=== PATIENT | female | born 1970 | race Two or more races ===

== ENCOUNTER 2020-05-31 09:41 | Outpatient (REF) | payer MEDICAID, SELFPAY ==
--- NOTE | 2020-05-31 | MM_ITS ---
EXAMINATION: MM SCREENING DIGITAL BREAST TOMOSYNTHESIS, BILATERAL CLINICAL INFORMATION: Screening. Asymptomatic. The lifetime risk of breast cancer based on the Tyrer-Cuzick Model is 9%. COMPARISON: Mammography: 05/26/2019, 05/15/2018, 05/08/2017 TECHNIQUE: Digital breast tomosynthesis is performed in both the craniocaudal and mediolateral oblique views along with computer-aided detection (CAD). Synthesized 2D images are generated from the tomosynthesis. FINDINGS: The breasts are almost entirely fatty (ACR BI-RADS breast composition Category a). There are no significant masses, abnormal calcifications, or other abnormalities. Background stromal densities are stable. No significant changes. IMPRESSION: No mammographic evidence of malignancy. ASSESSMENT: BI-RADS 1: Negative RECOMMENDATION: Routine annual mammography screening. This patient's information was entered into a reminder system with a target due date for their next mammogram.
== END 2020-05-31 09:42 | disposition home or self-care (01) ==
LOC: HO.MAMMO 09:41
PROVIDERS: Visit Provider Internal Medicine
DX: Z12.31 Encounter for screening mammogram for malignant neoplasm of breast (principal)
CPT/HCPCS: 77063; 77067; 78014

== ENCOUNTER 2020-07-04 09:22 | Outpatient (REF) | payer MEDICAID, SELFPAY ==
[2020-07-04 10:58] LABS: Alanine Aminotransferase 21 U/L (0-31); Alkaline Phosphatase 90 U/L (39-117); Anion Gap 12 (12-20); Aspartate Amino Transferase 28 U/L (5-31); Bilirubin Total 0.3 mg/dL (0.0-1.0); Blood Urea Nitrogen 15 mg/dL (9-16); Calcium 8.9 mg/dL (8.4-10.2); Carbon Dioxide 30 mmol/L (22-29); Chloride 101 mmol/L (96-108); Estimated Glomerular Filt Rate > 60; Glucose Random 98 mg/dL (60-115); Potassium 3.6 mmol/l (3.3-5.1); Sodium 139 mmol/L (135-145); Total Protein 7.1 g/dL (6.5-8.0)
[2020-07-04 11:00] LABS: Estimated Average Glucose 131 mg/dL; Hemoglobin A1c % 6.2 %
== END 2020-07-04 09:23 | disposition home or self-care (01) ==
LOC: HO.LAB 09:22
PROVIDERS: Visit Provider Internal Medicine
DX: E03.9 Hypothyroidism, unspecified (principal); E78.00 Pure hypercholesterolemia, unspecified; I10 Essential (primary) hypertension; Z00.00 Encounter for general adult medical examination without abnormal findings
CPT/HCPCS: 80053; 83036

== ENCOUNTER 2020-10-18 09:25 | Outpatient (REF) | payer MEDICAID, SELFPAY ==
[2020-10-18 11:02] LABS: Thyroid Stimulating Hormone 0.93 uIU/mL (0.32-4.0)
== END 2020-10-18 09:26 | disposition home or self-care (01) ==
LOC: HO.LAB 09:25
PROVIDERS: PCP Internal Medicine; Visit Provider Internal Medicine
DX: E03.9 Hypothyroidism, unspecified (principal); E11.9 Type 2 diabetes mellitus without complications; I10 Essential (primary) hypertension; F33.41 Major depressive disorder, recurrent, in partial remission
CPT/HCPCS: 36415; 84443

== ENCOUNTER 2021-01-17 12:00 | Outpatient (REF) | payer MEDICAID, SELFPAY ==
[2021-01-17 13:40] LABS: Estimated Average Glucose 131 mg/dL; Hemoglobin A1c % 6.2 %
[2021-01-17 13:46] LABS: Alanine Aminotransferase 21 U/L (0-31); Albumin Level 4.1 g/dL (3.5-5.0); Alkaline Phosphatase 97 U/L (39-117); Anion Gap 13 (12-20); Aspartate Amino Transferase 25 U/L (5-31); Bilirubin Total 0.3 mg/dL (0.0-1.0); Blood Urea Nitrogen 13 mg/dL (9-16); Calcium 9.3 mg/dL (8.4-10.2); Carbon Dioxide 30 mmol/L (22-29); Chloride 100 mmol/L (96-108); Estimated Glomerular Filt Rate > 60; Glucose Random 99 mg/dL (60-115); Potassium 4.2 mmol/L (3.3-5.1); Sodium 139 mmol/L (135-145); Total Protein 7.5 g/dL (6.5-8.0)
== END 2021-01-17 12:01 | disposition home or self-care (01) ==
LOC: HO.LAB 12:00
PROVIDERS: PCP Internal Medicine; Visit Provider Internal Medicine
DX: E03.9 Hypothyroidism, unspecified (principal); E11.9 Type 2 diabetes mellitus without complications; I10 Essential (primary) hypertension; M25.562 Pain in left knee
CPT/HCPCS: 36415; 80053; 83036

== ENCOUNTER 2021-04-25 09:24 | Outpatient (REF) | payer MEDICAID, SELFPAY ==
[2021-04-25 10:21] LABS: MANUAL DIFF FLAG NO
[2021-04-25 10:29] LABS: Basophils Percent Auto 0.4 % (0-2); Eosinophils Absolute Auto 0.1 X10*3/uL (0.0-0.4); Eosinophils Percent Auto 1.3 % (0-4); Hematocrit 31.8 % (37-47); Hemoglobin 9.3 g/dl (12.0-16.0); Imm Gran Abs Auto 0.03 X10*3/uL (0.00-0.03); Imm Gran Pct Auto 0.4 % (0.0-0.4); Lymphocytes Absolute Auto 1.2 X10*3/uL (1.2-4.9); Lymphocytes Percent Auto 15.2 % (20-40); Mean Corpuscular HGB Conc 29.2 g/dl (31.0-35.0); Mean Corpuscular Hemoglobin 21.4 pg (27.0-33.0); Mean Corpuscular Volume 73.1 fL (80-98); Mean Platelet Volume 9.7 fL (9.4-12.3); Monocytes Absolute Auto 0.7 X10*3/uL (0.1-1.2); Monocytes Percent Auto 8.8 % (2-11); Neutrophils Absolute Auto 5.7 X10*3/uL (2.0-8.3); Neutrophils Percent Auto 73.9 % (45-73); Platelet Count 470 X10*3/uL (160-400); Red Blood Count 4.35 X10*6/uL (4.20-5.50); White Blood Count 7.8 X10*3/uL (4.8-10.8)
[2021-04-25 11:39] LABS: Thyroid Stimulating Hormone 1.21 uIU/mL (0.32-4.0)
[2021-04-25 11:58] LABS: Alanine Aminotransferase 28 U/L (0-31); Albumin Level 4.1 g/dL (3.5-5.0); Alkaline Phosphatase 98 U/L (39-117); Anion Gap 13 (12-20); Aspartate Amino Transferase 32 U/L (5-31); Bilirubin Total 0.3 mg/dL (0.0-1.0); Blood Urea Nitrogen 10 mg/dL (9-16); Calcium 9.4 mg/dL (8.4-10.2); Carbon Dioxide 28 mmol/L (22-29); Chloride 101 mmol/L (96-108); Cholesterol 165 mg/dL; Estimated Glomerular Filt Rate > 60; Glucose Random 98 mg/dL (60-115); HDL Cholesterol 61 mg/dL; LDL Cholesterol Calculated 83 mg/dl; Potassium 3.8 mmol/L (3.3-5.1); Sodium 138 mmol/L (135-145); Total Protein 7.5 g/dL (6.5-8.0); Triglycerides 105 mg/dL
[2021-04-25 12:00] LABS: Creatinine Urine 157.09 mg/dL; Microalbum/Creatinine Ratio Ur 10.1 ug/mg cr
== END 2021-04-25 09:25 | disposition home or self-care (01) ==
LOC: HO.LAB 09:24
PROVIDERS: PCP Internal Medicine; Visit Provider Internal Medicine
DX: E03.9 Hypothyroidism, unspecified (principal); E11.9 Type 2 diabetes mellitus without complications; F33.42 Major depressive disorder, recurrent, in full remission; I10 Essential (primary) hypertension
CPT/HCPCS: 36415; 80053; 80061; 82043; 84443; 85025

== ENCOUNTER 2021-06-05 10:58 | Outpatient (REF) | payer MEDICAID, SELFPAY ==
--- NOTE | ~2021-06-05 | MM_ITS ---
EXAMINATION: MM SCREENING DIGITAL BREAST TOMOSYNTHESIS, BILATERAL CLINICAL INFORMATION: Screening. Asymptomatic. The lifetime risk of breast cancer based on the Tyrer-Cuzick Model is 12.0%. COMPARISON: Mammography: May 31, 2020 and studies dating back to February 21, 2012 TECHNIQUE: Digital breast tomosynthesis is performed in both the craniocaudal and mediolateral oblique views along with computer-aided detection (CAD). Synthesized 2D images are generated from the tomosynthesis. FINDINGS: The breasts are almost entirely fatty (ACR BI-RADS breast composition Category a). There are no significant masses, abnormal calcifications, or other abnormalities. MM/MM tomosynthesis screening BI IMPRESSION: There are no significant changes from prior study. ASSESSMENT: BI-RADS 1: Negative RECOMMENDATION: Routine annual mammography screening. This patient's information was entered into a reminder system with a target due date for their next mammogram.
== END 2021-06-05 10:59 | disposition home or self-care (01) ==
LOC: HO.MAMMO 10:58
PROVIDERS: Visit Provider Internal Medicine
DX: Z12.31 Encounter for screening mammogram for malignant neoplasm of breast (principal)
CPT/HCPCS: 77063; 77067

== ENCOUNTER 2021-09-03 09:57 | Outpatient (REF) | payer MEDICAID, SELFPAY ==
[2021-09-03 10:11] LABS: MANUAL DIFF FLAG NO
[2021-09-03 11:04] LABS: Basophils Percent Auto 0.4 % (0-2); Eosinophils Absolute Auto 0.1 X10*3/uL (0.0-0.4); Eosinophils Percent Auto 0.8 % (0-4); Hematocrit 31.6 % (37.0-47.0); Hemoglobin 9.2 g/dl (12.0-16.0); Imm Gran Abs Auto 0.02 X10*3/uL (0.00-0.03); Imm Gran Pct Auto 0.3 % (0.0-0.4); Lymphocytes Absolute Auto 0.8 X10*3/uL (1.2-4.9); Lymphocytes Percent Auto 11.7 % (20-40); Mean Corpuscular HGB Conc 29.1 g/dl (31.0-35.0); Mean Corpuscular Hemoglobin 20.6 pg (27.0-33.0); Mean Corpuscular Volume 70.9 fL (80.0-98.0); Mean Platelet Volume 10.1 fL (9.4-12.3); Monocytes Absolute Auto 0.6 X10*3/uL (0.1-1.2); Monocytes Percent Auto 8.4 % (2-11); Neutrophils Absolute Auto 5.6 x10*3/uL (2.0-8.3); Neutrophils Percent Auto 78.4 % (45-73); Platelet Count 438 X10*3/uL (160-400); Red Blood Count 4.46 X10*6/uL (4.20-5.50); Red Cell Distribution Width 18.1 % (11.0-16.0); White Blood Count 7.2 X10*3/uL (4.8-10.8)
[2021-09-03 11:17] LABS: Estimated Average Glucose 126 mg/dL
[2021-09-03 11:36] LABS: Alanine Aminotransferase 23 U/L (0-31); Albumin Level 3.9 g/dL (3.5-5.0); Alkaline Phosphatase 92 U/L (39-117); Anion Gap 10 (12-20); Aspartate Amino Transferase 28 U/L (5-31); Bilirubin Total 0.3 mg/dL (0.0-1.0); Blood Urea Nitrogen 10 mg/dL (9-16); Calcium 9.2 mg/dL (8.4-10.2); Carbon Dioxide 31 mmol/L (22-29); Chloride 103 mmol/L (96-108); Estimated Glomerular Filt Rate > 60; Glucose Random 96 mg/dL (60-115); Potassium 3.8 mmol/L (3.3-5.1); Sodium 140 mmol/L (135-145); Total Protein 7.1 g/dL (6.5-8.0)
[2021-09-03 11:50] LABS: Vitamin B12 297 pg/mL (200-900)
[2021-09-03 11:57] LABS: Ferritin 4 ng/mL (10-250)
== END 2021-09-03 09:58 | disposition home or self-care (01) ==
LOC: HO.LAB 09:57
PROVIDERS: Visit Provider Internal Medicine
DX: Z00.01 Encounter for general adult medical examination with abnormal findings (principal); D50.8 Other iron deficiency anemias; E03.9 Hypothyroidism, unspecified; E11.9 Type 2 diabetes mellitus without complications; F33.41 Major depressive disorder, recurrent, in partial remission
CPT/HCPCS: 36415; 80053; 82607; 82728; 83036; 85025

== ENCOUNTER 2021-12-24 10:08 | Outpatient (REF) | payer MEDICAID, SELFPAY ==
[2021-12-24 10:21] LABS: MANUAL DIFF FLAG NO
[2021-12-24 10:53] LABS: Basophils Percent Auto 0.3 % (0-2); Eosinophils Absolute Auto 0.1 X10*3/uL (0.0-0.4); Eosinophils Percent Auto 0.8 % (0-4); Hemoglobin 11.6 g/dl (12.0-16.0); Imm Gran Abs Auto 0.02 X10*3/uL (0.00-0.03); Imm Gran Pct Auto 0.3 % (0.0-0.4); Lymphocytes Absolute Auto 1.1 X10*3/uL (1.2-4.9); Lymphocytes Percent Auto 16.7 % (20-40); Mean Corpuscular HGB Conc 30.5 g/dl (31.0-35.0); Mean Corpuscular Hemoglobin 24.4 pg (27.0-33.0); Mean Platelet Volume 10.2 fL (9.4-12.3); Monocytes Absolute Auto 0.5 X10*3/uL (0.1-1.2); Monocytes Percent Auto 8.3 % (2-11); Neutrophils Absolute Auto 4.7 x10*3/uL (2.0-8.3); Neutrophils Percent Auto 73.6 % (45-73); Platelet Count 348 X10*3/uL (160-400); Red Blood Count 4.75 X10*6/uL (4.20-5.50); Red Cell Distribution Width 19.4 % (11.0-16.0); White Blood Count 6.4 X10*3/uL (4.8-10.8)
[2021-12-24 10:57] LABS: Estimated Average Glucose 120 mg/dL; Hemoglobin A1c % 5.8 %
[2021-12-24 11:22] LABS: Alanine Aminotransferase 24 U/L (0-31); Albumin Level 4.1 g/dL (3.5-5.0); Alkaline Phosphatase 92 U/L (39-117); Anion Gap 14 (12-20); Aspartate Amino Transferase 29 U/L (5-31); Bilirubin Total 0.3 mg/dL (0.0-1.0); Blood Urea Nitrogen 11 mg/dL (9-16); Calcium 9.6 mg/dL (8.4-10.2); Carbon Dioxide 28 mmol/L (22-29); Chloride 102 mmol/L (96-108); Estimated Glomerular Filt Rate > 60; Glucose Random 102 mg/dL (60-115); Potassium 3.7 mmol/L (3.3-5.1); Sodium 140 mmol/L (135-145); Total Protein 7.5 g/dL (6.5-8.0)
[2021-12-24 11:31] LABS: Ferritin 13 ng/mL (10-250); Thyroid Stimulating Hormone 0.54 uIU/mL (0.32-4.0)
== END 2021-12-24 10:09 | disposition home or self-care (01) ==
LOC: HO.LAB 10:08
PROVIDERS: PCP Internal Medicine; Visit Provider Internal Medicine
DX: D50.8 Other iron deficiency anemias (principal); E03.9 Hypothyroidism, unspecified; E11.9 Type 2 diabetes mellitus without complications; F33.41 Major depressive disorder, recurrent, in partial remission
CPT/HCPCS: 36415; 80053; 82728; 83036; 84443; 85025

== ENCOUNTER 2022-05-01 10:04 | Outpatient (REF) | payer MEDICAID, SELFPAY ==
[2022-05-01 12:10] LABS: Estimated Average Glucose 117 mg/dL; Hemoglobin A1c % 5.7 %
[2022-05-01 12:32] LABS: Alanine Aminotransferase 23 U/L (0-31); Albumin Level 4.1 g/dL (3.5-5.0); Alkaline Phosphatase 93 U/L (39-117); Anion Gap 16 (12-20); Aspartate Amino Transferase 27 U/L (5-31); Bilirubin Total 0.2 mg/dL (0.0-1.0); Blood Urea Nitrogen 14 mg/dL (9-16); Calcium 9.1 mg/dL (8.4-10.2); Carbon Dioxide 27 mmol/L (22-29); Chloride 102 mmol/L (96-108); Cholesterol 163 mg/dL; Estimated Glomerular Filt Rate > 60; Glucose Random 94 mg/dL (60-115); HDL Cholesterol 65 mg/dL; LDL Cholesterol Calculated 83 mg/dl; Potassium 4.3 mmol/L (3.3-5.1); Sodium 141 mmol/L (135-145); Total Protein 7.2 g/dL (6.5-8.0); Triglycerides 78 mg/dL
[2022-05-01 12:55] LABS: Thyroid Stimulating Hormone 0.62 uIU/mL (0.32-4.0)
== END 2022-05-01 10:05 | disposition home or self-care (01) ==
LOC: HO.LAB 10:04
PROVIDERS: PCP Internal Medicine; Visit Provider Internal Medicine
DX: D50.8 Other iron deficiency anemias (principal); E03.9 Hypothyroidism, unspecified; E11.9 Type 2 diabetes mellitus without complications; F33.41 Major depressive disorder, recurrent, in partial remission
CPT/HCPCS: 36415; 80053; 80061; 83036; 84443

== ENCOUNTER 2022-05-03 10:08 | Outpatient (REF) | payer MEDICAID, SELFPAY ==
[2022-05-03 11:30] LABS: Microalbumin Urine < 5.0 mg/L
== END 2022-05-03 10:09 | disposition home or self-care (01) ==
LOC: HO.LNP 10:08
PROVIDERS: Visit Provider Internal Medicine
DX: E11.9 Type 2 diabetes mellitus without complications (principal)
CPT/HCPCS: 82043

== ENCOUNTER 2022-06-12 08:18 | Outpatient (REF) | payer MEDICAID, SELFPAY ==
--- NOTE | ~2022-06-12 | MM_ITS ---
EXAMINATION: MM SCREENING DIGITAL BREAST TOMOSYNTHESIS, BILATERAL CLINICAL INFORMATION: Screening. Asymptomatic. The lifetime risk of breast cancer based on the Tyrer-Cuzick Model is 10%. COMPARISON: Mammography: June 05, 2021 and studies dating back to May 06, 2016 TECHNIQUE: Digital breast tomosynthesis is performed in both the craniocaudal and mediolateral oblique views along with computer-aided detection (CAD). Synthesized 2D images are generated from the tomosynthesis. FINDINGS: The breasts are almost entirely fatty (ACR BI-RADS breast composition Category a). There are no significant masses, abnormal calcifications, or other abnormalities. Skin calcifications versus deodorant is seen within the left axilla MM/MM tomosynthesis screening BI IMPRESSION: No mammographic evidence of malignancy. ASSESSMENT: BI-RADS 1: Negative RECOMMENDATION: Routine annual mammography screening. This patient's information was entered into a reminder system with a target due date for their next mammogram.
== END 2022-06-12 08:19 | disposition home or self-care (01) ==
LOC: HO.MAMMO 08:18
PROVIDERS: PCP Internal Medicine; Visit Provider Internal Medicine
DX: Z12.31 Encounter for screening mammogram for malignant neoplasm of breast (principal)
CPT/HCPCS: 77063; 77067

== ENCOUNTER 2022-08-29 09:56 | Outpatient (REF) | payer MEDICAID, SELFPAY ==
[2022-08-29 10:11] LABS: MANUAL DIFF FLAG NO
[2022-08-29 10:30] LABS: Basophils Percent Auto 0.2 % (0-2); Eosinophils Percent Auto 0.8 % (0-4); Hematocrit 37.4 % (37.0-47.0); Hemoglobin 11.9 g/dl (12.0-16.0); Imm Gran Abs Auto 0.03 X10*3/uL (0.00-0.03); Imm Gran Pct Auto 0.6 % (0.0-0.4); Lymphocytes Absolute Auto 0.8 X10*3/uL (1.2-4.9); Lymphocytes Percent Auto 15.3 % (20-40); Mean Corpuscular HGB Conc 31.8 g/dl (31.0-35.0); Mean Corpuscular Hemoglobin 27.5 pg (27.0-33.0); Mean Corpuscular Volume 86.4 fL (80.0-98.0); Monocytes Absolute Auto 0.5 X10*3/uL (0.1-1.2); Monocytes Percent Auto 10.1 % (2-11); Neutrophils Absolute Auto 3.8 x10*3/uL (2.0-8.3); Platelet Count 309 X10*3/uL (160-400); Red Blood Count 4.33 X10*6/uL (4.20-5.50); Red Cell Distribution Width 14.2 % (11.0-16.0); White Blood Count 5.2 X10*3/uL (4.8-10.8)
== END 2022-08-29 09:57 | disposition home or self-care (01) ==
LOC: HO.LAB 09:56
PROVIDERS: PCP Internal Medicine; Visit Provider Internal Medicine
DX: Z00.00 Encounter for general adult medical examination without abnormal findings (principal); E11.9 Type 2 diabetes mellitus without complications; E78.00 Pure hypercholesterolemia, unspecified; E03.8 Other specified hypothyroidism
CPT/HCPCS: 36415; 85025

== ENCOUNTER 2022-11-25 08:55 | Outpatient (REF) | payer MEDICAID, SELFPAY ==
[2022-11-25 09:07] LABS: MANUAL DIFF FLAG NO
[2022-11-25 09:58] LABS: Basophils Percent Auto 0.5 % (0-2); Eosinophils Absolute Auto 0.1 X10*3/uL (0.0-0.4); Eosinophils Percent Auto 0.8 % (0-4); Hematocrit 36.6 % (37.0-47.0); Hemoglobin 11.6 g/dl (12.0-16.0); Imm Gran Abs Auto 0.02 X10*3/uL (0.00-0.03); Imm Gran Pct Auto 0.3 % (0.0-0.4); Lymphocytes Absolute Auto 1.4 X10*3/uL (1.2-4.9); Lymphocytes Percent Auto 18.8 % (20-40); Mean Corpuscular HGB Conc 31.7 g/dl (31.0-35.0); Mean Corpuscular Hemoglobin 27.8 pg (27.0-33.0); Mean Corpuscular Volume 87.6 fL (80.0-98.0); Monocytes Absolute Auto 0.7 X10*3/uL (0.1-1.2); Monocytes Percent Auto 8.7 % (2-11); Neutrophils Absolute Auto 5.3 x10*3/uL (2.0-8.3); Neutrophils Percent Auto 70.9 % (45-73); Platelet Count 400 X10*3/uL (160-400); Red Blood Count 4.18 X10*6/uL (4.20-5.50); Red Cell Distribution Width 13.9 % (11.0-16.0); White Blood Count 7.4 X10*3/uL (4.8-10.8)
[2022-11-25 10:08] LABS: Estimated Average Glucose 120 mg/dL; Hemoglobin A1c % 5.8 %
[2022-11-25 10:33] LABS: Alanine Aminotransferase 20 U/L (0-31); Alkaline Phosphatase 76 U/L (39-117); Anion Gap 14 (12-20); Aspartate Amino Transferase 25 U/L (5-31); Bilirubin Total 0.3 mg/dL (0.0-1.0); Blood Urea Nitrogen 20 mg/dL (9-16); Carbon Dioxide 29 mmol/L (22-29); Chloride 101 mmol/L (96-108); Estimated Glomerular Filt Rate > 60; Glucose Random 90 mg/dL (60-115); Potassium 4.5 mmol/L (3.3-5.1); Sodium 139 mmol/L (135-145); Total Protein 6.9 g/dL (6.5-8.0)
[2022-11-25 10:51] LABS: Thyroid Stimulating Hormone 0.46 uIU/mL (0.32-4.0)
== END 2022-11-25 08:56 | disposition home or self-care (01) ==
LOC: HO.LAB 08:55
PROVIDERS: PCP Internal Medicine; Visit Provider Internal Medicine
DX: D64.9 Anemia, unspecified (principal); E03.8 Other specified hypothyroidism; E11.9 Type 2 diabetes mellitus without complications; F32.4 Major depressive disorder, single episode, in partial remission
CPT/HCPCS: 36415; 80053; 83036; 84443; 85025

== ENCOUNTER 2023-04-21 09:57 | Outpatient (REF) | payer MEDICAID, SELFPAY ==
[2023-04-21 10:17] LABS: MANUAL DIFF FLAG NO
[2023-04-21 10:40] LABS: Basophils Percent Auto 0.3 % (0-2); Eosinophils Absolute Auto 0.1 X10*3/uL (0.0-0.4); Eosinophils Percent Auto 0.8 % (0-4); Hematocrit 33.9 % (37.0-47.0); Imm Gran Abs Auto 0.02 X10*3/uL (0.00-0.03); Imm Gran Pct Auto 0.3 % (0.0-0.4); Lymphocytes Absolute Auto 0.9 X10*3/uL (1.2-4.9); Lymphocytes Percent Auto 13.7 % (20-40); Mean Corpuscular HGB Conc 32.4 g/dl (31.0-35.0); Mean Corpuscular Hemoglobin 27.6 pg (27.0-33.0); Mean Corpuscular Volume 85.2 fL (80.0-98.0); Monocytes Absolute Auto 0.5 X10*3/uL (0.1-1.2); Monocytes Percent Auto 7.5 % (2-11); Neutrophils Percent Auto 77.4 % (45-73); Platelet Count 337 X10*3/uL (160-400); Red Blood Count 3.98 X10*6/uL (4.20-5.50); Red Cell Distribution Width 13.5 % (11.0-16.0); White Blood Count 6.4 X10*3/uL (4.8-10.8)
[2023-04-21 11:28] LABS: Estimated Average Glucose 120 mg/dL; Hemoglobin A1c % 5.8 % (<6.0)
[2023-04-21 12:11] LABS: Creatinine Urine 162.29 mg/dL; Microalbum/Creatinine Ratio Ur 6.7 ug/mg cr (<30)
[2023-04-21 12:28] LABS: Alanine Aminotransferase 17 U/L (0-31); Albumin Level 3.9 g/dL (3.5-5.0); Alkaline Phosphatase 75 U/L (39-117); Anion Gap 13 (12-20); Aspartate Amino Transferase 22 U/L (5-31); Bilirubin Total 0.2 mg/dL (0.0-1.0); Blood Urea Nitrogen 17 mg/dL (9-16); Calcium 9.3 mg/dL (8.4-10.2); Carbon Dioxide 27 mmol/L (22-29); Chloride 105 mmol/L (96-108); Cholesterol 155 mg/dL (<200); Estimated Glomerular Filt Rate > 60; Glucose Random 94 mg/dL (60-115); HDL Cholesterol 63 mg/dL (>40); LDL Cholesterol Calculated 76 mg/dL (<100); Potassium 3.8 mmol/L (3.3-5.1); Sodium 141 mmol/L (135-145); Total Protein 7.1 g/dL (6.5-8.0); Triglycerides 82 mg/dL (<150)
[2023-04-21 12:33] LABS: Thyroid Stimulating Hormone 0.27 uIU/mL (0.32-4.0)
== END 2023-04-21 09:58 | disposition home or self-care (01) ==
LOC: HO.LAB 09:57
PROVIDERS: PCP Internal Medicine; Visit Provider Internal Medicine
DX: E03.8 Other specified hypothyroidism (principal); E11.9 Type 2 diabetes mellitus without complications; I10 Essential (primary) hypertension
CPT/HCPCS: 36415; 80053; 80061; 82043; 83036; 84443; 85025

== ENCOUNTER 2023-06-18 10:02 | Outpatient (REF) | payer MEDICAID, SELFPAY | END 2023-06-18 10:03 | disposition home or self-care (01) | LOC: HO.MAMMO 10:02 | PROVIDERS: PCP Internal Medicine; Visit Provider Internal Medicine | DX: Z12.31 Encounter for screening mammogram for malignant neoplasm of breast (principal) | CPT/HCPCS: 77063; 77067 ==

== ENCOUNTER → 2023-06-18 10:30 | Outpatient (BNV) | payer MEDICAID, SELFPAY | PROVIDERS: PCP Internal Medicine; Visit Provider Radiology Diagnostic Radiology | DX: Z12.31 Encounter for screening mammogram for malignant neoplasm of breast (principal) | CPT/HCPCS: 77063; 77067 ==

== ENCOUNTER 2023-07-29 14:17 | Outpatient (AMB) | payer MEDICAID, SELFPAY ==
--- NOTE | 2023-07-29 14:29 | A.OFFVIS_ITS ---
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 Intake Note: NPV Comb Tender Required: No Accompanied by: Self / Same As Patient Allergies No Known Allergies Allergy (Verified 07/29/23 14:36) Medication List - Last Reconciled 07/29/23 by Akhil Thurman MD aspirin (Adult Low Dose Aspirin) 81 mg PO DAILY atorvastatin 20 mg PO DAILY calcium carbonate-vitamin D3 600 mg-10 mcg (400 unit) 1 tab PO BID levothyroxine 88 mcg PO DAILY metformin 850 mg PO BID metoprolol succinate ER 25 mg PO DAILY sacubitril-valsartan 24-26 mg (Entresto) 1 tab PO BID sertraline 100 mg PO DAILY ticagrelor (Brilinta) 90 mg PO BID HPI HPI Comments History of Present Illness Details My is here for consultation regarding coronary artery disease. Records from [facility] reviewed. Patient with many comorbidities including hypertension, dyslipidemia, diabetes, obesity presented to [facility] in June of this year with chest pain. Diagnosed to have STEMI and underwent drug- eluting stent to the LAD. She also had severe LV dysfunction with an ejection fraction of 25-30% range. She has been put on appropriate medications and then discharged home. She states she is doing okay for the most part. Occasional chest pains but nothing bothersome. Not clear there even cardiac as they are nonexertional. Otherwise, blood pressure seems to be on the higher side today but at home apparently it is generally better. [facility] Medical History (Updated 07/29/23 @ 14:58 by Akhil Thurman MD) Essential hypertension Type 2 diabetes mellitus with unspecified complications Ischemic cardiomyopathy Atherosclerotic cardiovascular disease Surgical History (Updated 07/29/23 @ 14:47 by Akhil Thurman MD) Hx of cardiac catheterization Family History (Updated 07/29/23 @ 14:39 by Paige Little) Mother Stroke Social History (Updated 07/29/23 @ 14:39 by Paige Little) Alcohol intake: never Patient Tobacco Use Status: Never used Tobacco Review of Systems Const Denies chills, Denies daytime sleepiness, Denies fatigue, Denies fever(s), Denies frequent falls, Denies night sweats, Denies snoring, Denies weakness, Denies weight gain and Denies weight loss Eyes Denies loss of vision ENT Denies dizziness and Denies hearing loss Card Denies chest pain, Denies chest pain with activity, Denies syncope, Denies rapid heart rate, Denies edema, Denies claudication, Denies leg edema, Denies lightheadedness, Denies palpitations, Denies dyspnea, Denies dyspnea on exertion and Denies orthopnea Resp Denies cough, Denies excessive phlegm production, Denies dyspnea, Denies dyspnea on exertion, Denies snoring and Denies wheezing GI Denies abdominal pain, Denies hematochezia, Denies change in bowel habits, Denies change in stool character, Denies heartburn, Denies nausea and Denies vomiting Denies hematuria, Denies urinary frequency and Denies dysuria Musc Denies arthralgias, Denies muscle weakness, Denies numbness and Denies tingling Skin/Breast Denies nail changes and Denies rash Neuro Denies Abnormal speech present, Denies dizziness, Denies syncope, Denies frequent falls, Denies loss of vision, Denies memory loss, Denies numbness, Denies tingling and Denies weakness Psych Denies depression and Denies memory loss Endo Denies fatigue and Denies palpitations Aller/Immun Denies wheezing Physical Exam Vital Signs: Last Vital Signs Pulse 71 07/29/23 14:36 BP 150/82 H 07/29/23 14:36 BMI result Body Mass Index 27.0 Const General: comfortable and no acute distress Orientation/consciousness: patient oriented x3 HEENT Other: Unremarkable Head: Yes normal to inspection Neck Neck: Yes normal visual inspection Chest Chest palpation & inspection: normal inspection of the chest Resp Auscultation: clear to auscultation bilaterally Cardio Palpation: normal PMI Heart sounds: S1 normal heart sound present, S2 normal heart sound present, no gallops, no murmurs and no rubs GI Palpation (GI): Soft to palpation Back/Spine/Pelvis Other: unremarkable Skin General skin exam: no rashes or lesions noted Neuro General: patient oriented x3 Speech: No Abnormal speech present Extrem General: Yes normal to inspection Psych Mental Status: mental status grossly normal Assessment & Plan Assessment & Plan (1) Atherosclerotic cardiovascular disease: Code(s): I25.10 - Atherosclerotic heart disease of [place] coronary artery without angina pectoris (2) Ischemic cardiomyopathy: Code(s): I25.5 - Ischemic cardiomyopathy (3) Stented coronary artery: Code(s): Z95.5 - Presence of coronary angioplasty implant and graft (4) Type 2 diabetes mellitus with unspecified complications: Code(s): E11.8 - Type 2 diabetes mellitus with unspecified complications (5) Essential hypertension: Code(s): I10 - Essential (primary) hypertension Plan EKG from [facility] shows sinus rhythm, anterior ischemia findings but no clear Q- waves. Echocardiogram with LVEF of 25-30%. Mid to distal anteroseptal wall, inferoseptal wall, apex, anterior anterior wall akinetic. In the cardiac catheterization, severe lesion to the proximal to mid LAD requiring ENEDELIA. Moderate disease in the left circumflex, om/PDA/PLV but not intervene. LVEDP was 6. Overall, continue medical therapy for coronary disease and cardiomyopathy. Long-term aspirin. Brilinta for 1 year. Continue Coreg/Entresto. Advised patient to bring it diary with her home blood pressure readings and we can start titrating the meds. Otherwise, repeat echocardiogram to reassess LVEF and ensured actually recovered and not. Will also referred for cardiac rehab. She is agreeable. With regard to diabetes, she is on metformin. Hemoglobin A1c is 5.8%. For dyslipidemia, on atorvastatin. Dose listed as 20 mg, but [facility] discharge states 80 mg. Not clear which is the correct dose. Follow-up in 6-8 weeks. Orders: Orders CA echo transthoracic complete Today I25.5 - Ischemic cardiomyopathy Cardiac Rehab Today Z95.5 - Presence of coronary angioplasty implant and graft Coding Level of Care Code New Pt Level 4 (33233) Diagnoses Atherosclerotic cardiovascular disease I25.10 Ischemic cardiomyopathy I25.5 Stented coronary artery Z95.5 Type 2 diabetes mellitus with unspecified complications E11.8 Essential hypertension I10
[2023-07-29 14:36] VITALS: BP 150/82; PULSE 71; BMI 27.0
== END 2023-07-29 14:52 | disposition home or self-care (01) ==
PROVIDERS: PCP Internal Medicine; Visit Provider Internal Medicine
DX: I25.10 Atherosclerotic heart disease of native coronary artery without angina pectoris (principal); I25.5 Ischemic cardiomyopathy; Z95.5 Presence of coronary angioplasty implant and graft; E11.8 Type 2 diabetes mellitus with unspecified complications; I10 Essential (primary) hypertension
CPT/HCPCS: 99204

== ENCOUNTER → 2023-07-29 14:17 | Outpatient (BNVA) | payer MEDICAID, SELFPAY | PROVIDERS: PCP Internal Medicine; Visit Provider Internal Medicine | DX: I25.10 Atherosclerotic heart disease of native coronary artery without angina pectoris (principal); I25.5 Ischemic cardiomyopathy; E11.8 Type 2 diabetes mellitus with unspecified complications; I10 Essential (primary) hypertension; Z95.5 Presence of coronary angioplasty implant and graft | CPT/HCPCS: 99202 ==

== ENCOUNTER → 2023-08-20 07:57 | Outpatient (REF) | payer MEDICAID, SELFPAY ==
--- NOTE | 2023-08-20 08:00 | CA_ITS ---
Transthoracic Echocardiogram Patient (Last, First, Middle): My Colin, Gender: Female Date of : 1970 Age: 53 Procedure Date: 08/20/2023 Procedure Type: Transthoracic Echocardiogram Location: OP Height: 167.64 cm Weight: 74.39 kg BSA: 1.84 m2 Heart Rate: bpm BP: 140 / 70 mmHg Floor Coverings Salesperson: KESHAWN/CHRISTIAN Referring MD: Akhil Thurman MD Symptoms: I25.5 - Ischemic cardiomyopathy Study Quality: Adequate ECG Rhythm: Sinus Conclusions: - The left ventricular systolic function is normal. The calculated ejection fraction is 55% by biplane method. - The apical inferior, mid inferior, and mid anteroseptal segments are hypokinetic. The mid inferoseptal segment is akinetic. - No obvious valvular pathology seen on this study. Findings Left Ventricle Normal left ventricular cavity size. There is normal left ventricular wall thickness. The left ventricular systolic function is normal. The calculated ejection fraction is 55% by biplane method. There is evidence of regional wall motion abnormalities. Diastolic function is normal for age. LV peak GLS -19.8%. Wall Motion Rest Echo Findings The apical inferior, mid inferior, and mid anteroseptal segments are hypokinetic. The mid inferoseptal segment is akinetic. Right Ventricle Normal right ventricular cavity size. There is mildly decreased right ventricular systolic function. Atria Both atria are normal in size. Aortic Valve There is a normal trileaflet aortic valve. There is no aortic valve stenosis. There is no aortic valve regurgitation. Mitral Valve The mitral valve appears normal. There is no mitral valve regurgitation. There is no mitral valve stenosis. Pulmonic Valve The pulmonic valve is likely normal. Tricuspid Valve There is trace tricuspid valve regurgitation. There is no evidence of pulmonary hypertension. Great Vessels The aortic arch is normal in size. Venous The inferior vena cava is normal in size and collapses greater than 50% with inspiration. Pericardium/Pleural There is no evidence of pericardial effusion. Prior Study Comparison No prior study available for comparison. Compared to recent [facility] [place], improved LVEF. Recommendations, Care & Conclusions No obvious valvular pathology seen on this study. Measurements 2D Linear Measurements IVSd: 0.84 0.6-0.9/0.6-1.0 cm LVIDd: 3.57 3.9-5.3/4.2-5.9 cm LVIDd Index: 1.94 2.4-3.2/2.2-3.1 cm/m2 LVIDs: 2.02 2.0-3.6 cm LVPWd: 1.08 0.7-1.1 cm LA Diam: 3.80 2.7-3.8/3.0-4.0 cm LAIDs Index: 2.07 1.5-2.3 cm/m2 LV Mass: 124.39 67-162/88-224 g LV Mass Index: 67.60 43-95/49-115 g/m2 LVOT Diam: 2.00 3.0+(-)1.3 cm 2D Systolic Function EF 4C: 54.70 >55% EF 2C: 58.40 >55% EF BiP: 55.20 >55% Mitral Valve MV Pk E: 0.79 MV PK A: 0.76 MV Decel Time: 176.00 E/A: 1.00 E'Lateral: 9.25 E'Medial: 6.96 E/E' Med: 11.30 E/E' Lat: 8.50 PHT: 52.00 MVA PHT: 4.23 Decel Christian: 4.47 Aortic Valve AoV Pk Arsen: 1.21 AoV Mn Arsen: 0.89 AoV VTI: 0.28 AoV Pk Grad: 6.00 Aov Mn Grad: 3.00 REKHA Cont.VTI: 2.22 LVOT LVOT Pk Arsen: 0.86 LVOT Mn Arsen: 0.65 LVOT VTI: 0.20 LVOT Pk Grad: 3.00 LVOT Mn Grad: 2.00 LVOT Diam: 2.00 LVOT Area: 3.14 Diastolic Function MV Pk E: 0.79 MV Pk A: 0.76 E/A: 1.00 E'Medial: 6.96 E/E' Med: 11.30 E' Laterial: 9.25 E/E' Lat: 8.50 Right Ventricle TAPSE (mm): 18.20 TVS' Arsen: 9.90 Tricuspid Valve TR Pk Arsen: 2.12 TR Pk Grad: 18.00 RA Press: 3.00 RVSP: 21.00 Great Vessels Aorta Sinus of Valsalva: 2.90 2.0-3.5 cm Ao Asc: 3.00 2.1-3.4 cm Ao Arch: 2.80 Updated in Other Vendor System with Status of Final Akhil Thurman MD electronically signed on 08/21/2023 4:34:00 PM with status of Final
== END ==
LOC: HO.CARD 07:57
PROVIDERS: PCP Internal Medicine; Visit Provider Internal Medicine
DX: I25.5 Ischemic cardiomyopathy (principal)
CPT/HCPCS: 93306; 93356

== ENCOUNTER → 2023-08-20 08:00 | Outpatient (BNV) | payer MEDICAID, SELFPAY | PROVIDERS: PCP Internal Medicine; Visit Provider Internal Medicine | DX: I25.5 Ischemic cardiomyopathy (principal) | CPT/HCPCS: 93306 ==

== ENCOUNTER 2023-10-09 08:54 | Outpatient (REF) | payer MEDICAID, SELFPAY ==
[2023-10-09 09:10] LABS: MANUAL DIFF FLAG NO
[2023-10-09 09:37] LABS: Basophils Percent Auto 0.3 % (0-2); Eosinophils Absolute Auto 0.1 X10*3/uL (0.0-0.4); Hematocrit 32.1 % (37.0-47.0); Hemoglobin 9.9 g/dl (12.0-16.0); Imm Gran Abs Auto 0.03 X10*3/uL (0.00-0.03); Imm Gran Pct Auto 0.5 % (0.0-0.4); Lymphocytes Absolute Auto 0.9 X10*3/uL (1.2-4.9); Lymphocytes Percent Auto 13.8 % (20-40); Mean Corpuscular HGB Conc 30.8 g/dl (31.0-35.0); Mean Corpuscular Hemoglobin 25.3 pg (27.0-33.0); Mean Corpuscular Volume 82.1 fL (80.0-98.0); Mean Platelet Volume 10.2 fL (9.4-12.3); Monocytes Absolute Auto 0.5 X10*3/uL (0.1-1.2); Monocytes Percent Auto 8.4 % (2-11); Neutrophils Absolute Auto 4.7 x10*3/uL (2.0-8.3); Platelet Count 422 X10*3/uL (160-400); Red Blood Count 3.91 X10*6/uL (4.20-5.50); Red Cell Distribution Width 15.1 % (11.0-16.0); White Blood Count 6.2 X10*3/uL (4.8-10.8)
[2023-10-09 09:41] LABS: Estimated Average Glucose 114 mg/dL; Hemoglobin A1c % 5.6 % (<6.0)
[2023-10-09 10:21] LABS: Alanine Aminotransferase 13 U/L (0-31); Albumin Level 3.8 g/dL (3.5-5.0); Alkaline Phosphatase 70 U/L (39-117); Anion Gap 12 (12-20); Aspartate Amino Transferase 24 U/L (5-31); Bilirubin Total 0.2 mg/dL (0.0-1.0); Blood Urea Nitrogen 13 mg/dL (9-16); Calcium 8.9 mg/dL (8.4-10.2); Carbon Dioxide 26 mmol/L (22-29); Chloride 106 mmol/L (96-108); Cholesterol 157 mg/dL (<200); Estimated Glomerular Filt Rate > 60; Glucose Random 89 mg/dL (60-115); HDL Cholesterol 68 mg/dL (>40); LDL Cholesterol Calculated 75 mg/dL (<100); Potassium 3.7 mmol/L (3.3-5.1); Sodium 140 mmol/L (135-145); Total Protein 6.9 g/dL (6.5-8.0); Triglycerides 72 mg/dL (<150)
[2023-10-09 10:34] LABS: Ferritin 13 ng/mL (10-250)
== END 2023-10-09 08:55 | disposition home or self-care (01) ==
LOC: HO.LAB 08:54
PROVIDERS: Visit Provider Internal Medicine
DX: D64.9 Anemia, unspecified (principal); E11.9 Type 2 diabetes mellitus without complications; I21.29 ST elevation (STEMI) myocardial infarction involving other sites; Z95.810 Presence of automatic (implantable) cardiac defibrillator
CPT/HCPCS: 36415; 80053; 80061; 82728; 83036; 85025

== ENCOUNTER 2023-10-14 08:56 | Outpatient (AMB) | payer MEDICAID, SELFPAY ==
[2023-10-14 09:07] VITALS: BP 114/74; PULSE 84; BMI 26.8
--- NOTE | 2023-10-14 09:07 | A.OFFVIS_ITS ---
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 Accompanied by: Self / Same As Patient Allergies No Known Allergies Allergy (Verified 10/14/23 09:09) Medication List - Last Reconciled 10/14/23 by Akhil Thurman MD aspirin (Adult Low Dose Aspirin) 81 mg PO DAILY atorvastatin 80 mg PO BEDTIME calcium carbonate-vitamin D3 600 mg-10 mcg (400 unit) 1 tab PO BID levothyroxine 88 mcg PO DAILY metformin 850 mg PO BID metoprolol succinate ER 25 mg PO DAILY sacubitril-valsartan 24-26 mg (Entresto) 1 tab PO BID 30 days sertraline 100 mg PO DAILY ticagrelor (Brilinta) 90 mg PO BID 90 days HPI HPI Comments History of Present Illness Details My returns for follow-up regarding coronary artery disease. Multiple comorbidities including diabetes, hypertension, dyslipidemia. She presented to [facility] in June 2023 with chest pain and diagnosed to have STEMI; underwent ENEDELIA to LAD. She also had severe LV dysfunction with an ejec tion fraction of 25-30% range. She has been put on appropriate medications and then discharged home. She states she is doing fine. No new complaints. Nothing cardiac. No angina. [facility] Medical History (Updated 07/29/23 @ 14:58 by Akhil Thurman MD) Essential hypertension Type 2 diabetes mellitus with unspecified complications Ischemic cardiomyopathy Atherosclerotic cardiovascular disease Surgical History Hx of cardiac catheterization Family History Mother Stroke Social History Alcohol intake: never Patient Tobacco Use Status: Never used Tobacco Review of Systems Const Denies weakness ENT Denies dizziness Card Denies chest pain, Denies chest pain with activity, Denies syncope, Denies rapid heart rate, Denies pedal edema, Denies edema, Denies leg edema, Denies lightheadedness, Denies palpitations, Denies dyspnea, Denies dyspnea on exertion and Denies orthopnea Resp Denies cough, Denies dyspnea and Denies dyspnea on exertion GI Denies hematochezia and Denies change in stool character Musc Denies abnormal gait, Denies muscle cramps, Denies muscle weakness, Denies numbness, Denies radiating pain into limb and Denies tingling Neuro Denies abnormal gait, Denies dizziness, Denies syncope, Denies numbness, Denies tingling and Denies weakness Endo Denies palpitations Physical Exam Vital Signs: Last Vital Signs Pulse 84 10/14/23 09:07 BP 114/74 10/14/23 09:07 BMI result Body Mass Index 26.8 Const General: comfortable and no acute distress Orientation/consciousness: patient oriented x3 HEENT Other: Unremarkable Head: Yes normal to inspection Neck Neck: Yes normal visual inspection Chest Chest palpation & inspection: normal inspection of the chest Resp Auscultation: clear to auscultation bilaterally Cardio Palpation: normal PMI Heart sounds: S1 normal heart sound present, S2 normal heart sound present, no gallops, no murmurs and no rubs GI Palpation (GI): Soft to palpation Back/Spine/Pelvis Other: unremarkable Skin General skin exam: no rashes or lesions noted Neuro General: patient oriented x3 Extrem General: Yes normal to inspection Psych Mental Status: mental status grossly normal Assessment & Plan Assessment & Plan (1) Atherosclerotic cardiovascular disease: Code(s): I25.10 - Atherosclerotic heart disease of [place] coronary artery without angina pectoris (2) Stented coronary artery: Code(s): Z95.5 - Presence of coronary angioplasty implant and graft (3) Ischemic cardiomyopathy: Code(s): I25.5 - Ischemic cardiomyopathy (4) Type 2 diabetes mellitus with unspecified complications: Code(s): E11.8 - Type 2 diabetes mellitus with unspecified complications (5) Essential hypertension: Code(s): I10 - Essential (primary) hypertension Plan [place] [facility] [place] sinus rhythm, anterior ischemia findings but no clear Q- waves. Initial echocardiogram with LVEF of 25-30%. Mid to distal anteroseptal wall, inferoseptal wall, apex, anterior anterior wall akinetic. In the repeat study, LVEF 55%. In the cardiac catheterization, severe lesion to the proximal to mid LAD requiring ENEDELIA. Moderate disease in the left circumflex, OM/PDA/PLV, but not intervened. LVEDP was 6. Overall, continue medical therapy for coronary disease and cardiomyopathy. Long-term aspirin. Brilinta for 1 year. Continue metoprolol ER/Entresto. With regard to diabetes, she is on metformin. Hemoglobin A1c is 5.6%. For dyslipidemia, on atorvastatin. Last LDL 70 mg/dL and triglycerides 72 mg/dL. Continue cardiac rehabilitation. Coding Level of Care Code Est Pt Level 4 (71986) Diagnoses Atherosclerotic cardiovascular disease I25.10 Stented coronary artery Z95.5 Ischemic cardiomyopathy I25.5 Type 2 diabetes mellitus with unspecified complications E11.8 Essential hypertension I10
== END 2023-10-14 09:46 | disposition home or self-care (01) ==
PROVIDERS: PCP Internal Medicine; Visit Provider Internal Medicine
DX: I25.10 Atherosclerotic heart disease of native coronary artery without angina pectoris (principal); Z95.5 Presence of coronary angioplasty implant and graft; I25.5 Ischemic cardiomyopathy; E11.8 Type 2 diabetes mellitus with unspecified complications; I10 Essential (primary) hypertension
CPT/HCPCS: 99214

== ENCOUNTER → 2023-10-14 08:56 | Outpatient (BNVA) | payer MEDICAID, SELFPAY | PROVIDERS: PCP Internal Medicine; Visit Provider Internal Medicine | DX: I25.10 Atherosclerotic heart disease of native coronary artery without angina pectoris (principal); I25.5 Ischemic cardiomyopathy; E11.8 Type 2 diabetes mellitus with unspecified complications; I10 Essential (primary) hypertension; Z95.5 Presence of coronary angioplasty implant and graft | CPT/HCPCS: 99212 ==

== ENCOUNTER 2024-01-06 09:58 | Outpatient (REF) | payer MEDICAID, SELFPAY ==
[2024-01-06 10:10] LABS: MANUAL DIFF FLAG NO
[2024-01-06 11:15] LABS: Basophils Percent Auto 0.3 % (0-2); Eosinophils Absolute Auto 0.1 X10*3/uL (0.0-0.4); Eosinophils Percent Auto 0.7 % (0-4); Hematocrit 30.4 % (37.0-47.0); Hemoglobin 9.3 g/dl (12.0-16.0); Imm Gran Abs Auto 0.02 X10*3/uL (0.00-0.03); Imm Gran Pct Auto 0.3 % (0.0-0.4); Lymphocytes Absolute Auto 0.9 X10*3/uL (1.2-4.9); Lymphocytes Percent Auto 13.4 % (20-40); Mean Corpuscular HGB Conc 30.6 g/dl (31.0-35.0); Mean Corpuscular Hemoglobin 24.8 pg (27.0-33.0); Mean Corpuscular Volume 81.1 fL (80.0-98.0); Mean Platelet Volume 10.7 fL (9.4-12.3); Monocytes Absolute Auto 0.6 X10*3/uL (0.1-1.2); Neutrophils Absolute Auto 5.3 x10*3/uL (2.0-8.3); Neutrophils Percent Auto 77.3 % (45-73); Platelet Count 373 X10*3/uL (160-400); Red Blood Count 3.75 X10*6/uL (4.20-5.50); Red Cell Distribution Width 15.6 % (11.0-16.0); White Blood Count 6.9 X10*3/uL (4.8-10.8)
[2024-01-06 11:59] LABS: Alanine Aminotransferase 21 U/L (0-31); Albumin Level 3.9 g/dL (3.5-5.0); Alkaline Phosphatase 64 U/L (39-117); Anion Gap 14 (12-20); Aspartate Amino Transferase 34 U/L (5-31); Bilirubin Total 0.2 mg/dL (0.0-1.0); Blood Urea Nitrogen 14 mg/dL (9-16); Calcium 9.6 mg/dL (8.4-10.2); Carbon Dioxide 28 mmol/L (22-29); Chloride 105 mmol/L (96-108); Cholesterol 144 mg/dL (<200); Estimated Glomerular Filt Rate > 60; Glucose Random 90 mg/dL (60-115); HDL Cholesterol 69 mg/dL (>40); LDL Cholesterol Calculated 57 mg/dL (<100); Potassium 3.7 mmol/L (3.3-5.1); Sodium 143 mmol/L (135-145); Thyroid Stimulating Hormone 0.15 uIU/mL (0.32-4.0); Total Protein 7.4 g/dL (6.5-8.0); Triglycerides 90 mg/dL (<150)
[2024-01-06 12:00] LABS: Estimated Average Glucose 120 mg/dL; Hemoglobin A1c % 5.8 % (<6.0)
[2024-01-06 12:35] LABS: Folate 7.1 ng/mL (> or = 4.0); Vitamin B12 295 pg/mL (200-900)
== END 2024-01-06 09:59 | disposition home or self-care (01) ==
LOC: HO.LAB 09:58
PROVIDERS: PCP Internal Medicine; Visit Provider Internal Medicine
DX: D50.8 Other iron deficiency anemias (principal); E03.9 Hypothyroidism, unspecified; E11.9 Type 2 diabetes mellitus without complications; E78.00 Pure hypercholesterolemia, unspecified; Z95.818 Presence of other cardiac implants and grafts
CPT/HCPCS: 36415; 80053; 80061; 82607; 82746; 83036; 84443; 85025

== ENCOUNTER 2024-05-07 09:57 | Outpatient (REF) | payer MEDICAID, SELFPAY ==
[2024-05-07 10:10] LABS: MANUAL DIFF FLAG NO
[2024-05-07 10:54] LABS: Estimated Average Glucose 126 mg/dL
[2024-05-07 11:17] LABS: Alanine Aminotransferase 69 U/L (0-31); Albumin Level 3.8 g/dL (3.5-5.0); Alkaline Phosphatase 92 U/L (39-117); Anion Gap 11 (12-20); Aspartate Amino Transferase 80 U/L (5-31); Basophils Percent Auto 0.3 % (0-2); Bilirubin Total 0.2 mg/dL (0.0-1.0); Blood Urea Nitrogen 16 mg/dL (9-16); Calcium 9.2 mg/dL (8.4-10.2); Carbon Dioxide 29 mmol/L (22-29); Chloride 106 mmol/L (96-108); Eosinophils Percent Auto 0.5 % (0-4); Estimated Glomerular Filt Rate > 60; Glucose Random 95 mg/dL (60-115); Hematocrit 27.4 % (37.0-47.0); Hemoglobin 8.4 g/dl (12.0-16.0); Imm Gran Abs Auto 0.01 X10*3/uL (0.00-0.03); Imm Gran Pct Auto 0.2 % (0.0-0.4); Lymphocytes Absolute Auto 0.7 X10*3/uL (1.2-4.9); Lymphocytes Percent Auto 11.5 % (20-40); Mean Corpuscular HGB Conc 30.7 g/dl (31.0-35.0); Mean Corpuscular Hemoglobin 22.8 pg (27.0-33.0); Mean Corpuscular Volume 74.3 fL (80.0-98.0); Mean Platelet Volume 10.2 fL (9.4-12.3); Monocytes Absolute Auto 0.5 X10*3/uL (0.1-1.2); Monocytes Percent Auto 8.3 % (2-11); Neutrophils Absolute Auto 4.8 x10*3/uL (2.0-8.3); Neutrophils Percent Auto 79.2 % (45-73); Platelet Count 360 X10*3/uL (160-400); Red Blood Count 3.69 X10*6/uL (4.20-5.50); Red Cell Distribution Width 16.2 % (11.0-16.0); Sodium 143 mmol/L (135-145); Total Protein 6.9 g/dL (6.5-8.0); White Blood Count 6.1 X10*3/uL (4.8-10.8)
[2024-05-07 11:33] LABS: Creatinine Urine 59.89 mg/dL; Microalbum/Creatinine Ratio Ur 315.5 ug/mg cr (<30)
[2024-05-07 11:35] LABS: Thyroid Stimulating Hormone 0.09 uIU/mL (0.32-4.0)
== END 2024-05-07 09:58 | disposition home or self-care (01) ==
LOC: HO.LAB 09:57
PROVIDERS: PCP Internal Medicine; Visit Provider Internal Medicine
DX: E03.9 Hypothyroidism, unspecified (principal); E11.9 Type 2 diabetes mellitus without complications; E78.00 Pure hypercholesterolemia, unspecified; Z95.818 Presence of other cardiac implants and grafts
CPT/HCPCS: 36415; 80053; 82043; 82570; 83036; 84443; 85025

== ENCOUNTER 2024-05-31 08:57 | Outpatient (AMB) | payer MEDICAID, SELFPAY ==
[2024-05-31 09:17] VITALS: BP 124/76; PULSE 78; BMI 23.6
--- NOTE | 2024-05-31 09:17 | MHC.OFFVIS ---
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 by: Self / Same As Patient Allergies No Known Allergies Allergy (Verified 10/14/23 09:09) Medication List - Last Reconciled 05/31/24 by Akhil Thurman MD aspirin (Adult Low Dose Aspirin) 81 mg PO DAILY atorvastatin 80 mg PO BEDTIME calcium carbonate-vitamin D3 600 mg-10 mcg (400 unit) 1 tab PO BID levothyroxine 50 mcg PO DAILY levothyroxine 50 mcg PO DAILY metformin 850 mg PO BID metoprolol succinate ER 25 mg PO DAILY potassium chloride 10 mEq PO DAILY sacubitril-valsartan 24-26 mg (Entresto) 1 tab PO BID 30 days sertraline 100 mg PO DAILY ticagrelor (Brilinta) 90 mg PO BID 30 days HPI Comments Details: My returns for follow-up regarding coronary artery disease. Multiple comorbidities including diabetes, hypertension, dyslipidemia. She presented to [facility] in June 2023 with chest pain and diagnosed to have STEMI; underwent ENEDELIA to LAD. She also had severe LV dysfunction with an ejection fraction of 25-30% range. Since then, no further issues. She is on appropriate guideline based medical therapy. She states she feels fine. No angina or any other cardiac symptoms. [facility] Medical History (Updated 07/29/23 @ 14:58 by Akhil Thurman MD) Essential hypertension Type 2 diabetes mellitus with unspecified complications Ischemic cardiomyopathy Atherosclerotic cardiovascular disease Surgical History Hx of cardiac catheterization Family History Mother Stroke Social History Alcohol intake: never Patient Tobacco Use Status: Never used Tobacco Review of Systems Const Denies chills, Denies fatigue, Denies fever(s), Denies weight gain and Denies weight loss ENT Denies dizziness Card Denies chest pain, Denies leg edema, Denies lightheadedness, Denies palpitations, Denies dyspnea on exertion, Denies orthopnea and Denies other Resp Denies cough and Denies dyspnea on exertion GI Denies hematochezia and Denies change in stool character Musc Denies abnormal gait, Denies muscle weakness, Denies numbness, Denies radiating pain into limb and Denies tingling Neuro Denies abnormal gait, Denies dizziness, Denies numbness and Denies tingling Endo Denies fatigue and Denies palpitations Physical Exam Vital Signs: Last Vital Signs Pulse 78 05/31/24 09:17 BP 124/76 05/31/24 09:17 BMI result Body Mass Index 23.6 Const General: comfortable and no acute distress Orientation/consciousness: patient oriented x3 HEENT Other: Unremarkable Head: Yes normal to inspection Neck Neck: Yes normal visual inspection Chest Chest palpation & inspection: normal inspection of the chest Resp Auscultation: clear to auscultation bilaterally Cardio Palpation: normal PMI Heart sounds: S1 normal heart sound present, S2 normal heart sound present, no gallops, no murmurs and no rubs GI Palpation (GI): Soft to palpation Back/Spine/Pelvis Other: unremarkable Skin General skin exam: no rashes or lesions noted Neuro General: patient oriented x3 Extrem General: Yes normal to inspection Psych Mental Status: mental status grossly normal Office Procedures EKG Details: EKG with underlying sinus rhythm at 78/Min; no significant ST-T changes and otherwise unremarkable. [place]. [id number], Complete Assessment & Plan Assessment & Plan (1) Atherosclerotic cardiovascular disease: Code(s): I25.10 - Atherosclerotic heart disease of [place] coronary artery without angina pectoris Category: Medical (2) Stented coronary artery: Code(s): Z95.5 - Presence of coronary angioplasty implant and graft Category: Surgical (3) Ischemic cardiomyopathy: Code(s): I25.5 - Ischemic cardiomyopathy Category: Medical (4) Type 2 diabetes mellitus with unspecified complications: Code(s): E11.8 - Type 2 diabetes mellitus with unspecified complications Category: Medical (5) Essential hypertension: Code(s): I10 - Essential (primary) hypertension Category: Medical Plan Cardiac studies reviewed. Initial echocardiogram with LVEF of 25-30%. Mid to distal anteroseptal wall, inferoseptal wall, apex, anterior anterior wall akinetic. In the repeat study, LVEF 55%. In the cardiac catheterization, severe lesion to the proximal to mid LAD requiring ENEDELIA. Moderate disease in the left circumflex, OM/PDA/PLV, but not intervened. LVEDP was 6. Overall, continue medical therapy for coronary disease and cardiomyopathy. Continue long-term aspirin. She can stop Brilinta at the 1 year sydnee. We discussed about it today. Continue metoprolol ER and Entresto. With regard to diabetes, on metformin. Last hemoglobin A1c is 6%. For dyslipidemia, on atorvastatin. LFTs slightly abnormal. That will need to be followed up. LDL cholesterol is 57 mg/dL. Otherwise, she states she completed cardiac rehabilitation. Follow-up in 1 year. In the interim, call with concerns. Orders: Orders CA echo transthoracic complete 1 Year I25.5 - Ischemic cardiomyopathy Liver Panel 2 Months I25.10 - Atherosclerotic heart disease of [place] coronary artery without angina pectoris Medications: Discontinued ticagrelor (Brilinta) Discontinued Reason: Doctor's Order 90 mg PO BID 30 days 60 tabs 5RF Coding Level of Care Code Est Pt Level 4 (51208) Complex EM visit Add On G2211 Diagnoses Atherosclerotic cardiovascular disease I25.10 Stented coronary artery Z95.5 Ischemic cardiomyopathy I25.5 Type 2 diabetes mellitus with unspecified complications E11.8 Essential hypertension I10 CPT Codes EKG - CPT: 85826-[id number], Complete ([id number])
== END 2024-05-31 09:41 | disposition home or self-care (01) ==
PROVIDERS: PCP Internal Medicine; Referring Provider Internal Medicine; Visit Provider Internal Medicine
DX: I25.10 Atherosclerotic heart disease of native coronary artery without angina pectoris (principal); Z95.5 Presence of coronary angioplasty implant and graft; I25.5 Ischemic cardiomyopathy; E11.8 Type 2 diabetes mellitus with unspecified complications; I10 Essential (primary) hypertension
CPT/HCPCS: 93010; 99214

== ENCOUNTER → 2024-05-31 08:57 | Outpatient (BNVA) | payer MEDICAID, SELFPAY | PROVIDERS: PCP Internal Medicine; Visit Provider Internal Medicine | DX: I25.10 Atherosclerotic heart disease of native coronary artery without angina pectoris (principal); I10 Essential (primary) hypertension; I25.5 Ischemic cardiomyopathy; E11.9 Type 2 diabetes mellitus without complications; Z95.5 Presence of coronary angioplasty implant and graft | CPT/HCPCS: 93005; 99212 ==

== ENCOUNTER 2024-06-23 10:34 | Outpatient (REF) | payer MEDICAID, SELFPAY ==
--- NOTE | ~2024-06-23 | MM_ITS ---
EXAMINATION: MM SCREENING DIGITAL BREAST TOMOSYNTHESIS, BILATERAL CLINICAL INFORMATION: Screening. Asymptomatic. COMPARISON: Mammography: Comparison is made with available priors TECHNIQUE: Digital breast mammography with tomosynthesis is performed in both the craniocaudal and mediolateral oblique views along with computer-aided detection (CAD). FINDINGS: There are scattered areas of fibroglandular density (ACR BI-RADS breast composition Category b). There are no significant masses, abnormal calcifications, or other abnormalities. MM/MM tomosynthesis screening BI IMPRESSION: No mammographic evidence of malignancy. ASSESSMENT: BI-RADS BI-RADS 1 - Negative RECOMMENDATION: Routine annual mammography screening. 1 year F/U This examination should not preclude the clinical evaluation of a suspicious palpable abnormality. This patient's information was entered into a reminder system with a target due date for their next mammogram. Electronically signed by: Nila Strauss DO 07/02/2024 08:14 AM JOHNNIE
== END 2024-06-23 10:35 | disposition home or self-care (01) ==
LOC: HO.MAMMO 10:34
PROVIDERS: PCP Internal Medicine; Visit Provider Internal Medicine
DX: Z12.31 Encounter for screening mammogram for malignant neoplasm of breast (principal)
CPT/HCPCS: 77063; 77067

== ENCOUNTER → 2024-06-23 10:45 | Outpatient (BNV) | payer MEDICAID, SELFPAY | PROVIDERS: PCP Internal Medicine; Visit Provider Internal Medicine | DX: Z12.31 Encounter for screening mammogram for malignant neoplasm of breast (principal) | CPT/HCPCS: 77063; 77067 ==

== ENCOUNTER 2024-08-02 09:57 | Outpatient (REF) | payer MEDICAID, SELFPAY ==
[2024-08-02 11:22] LABS: Estimated Average Glucose 128 mg/dL; Hemoglobin A1C 83.8904 umol/L; Hemoglobin A1c % 6.1 % (<6.0)
[2024-08-02 12:14] LABS: Alanine Aminotransferase 130 U/L (0-31); Albumin Level 3.8 g/dL (3.5-5.0); Alkaline Phosphatase 103 U/L (39-117); Anion Gap 8 (12-20); Aspartate Amino Transferase 159 U/L (5-31); Bilirubin Total 0.2 mg/dL (0.0-1.0); Blood Urea Nitrogen 15 mg/dL (9-16); Calcium 9.1 mg/dL (8.4-10.2); Carbon Dioxide 28 mmol/L (22-29); Chloride 105 mmol/L (96-108); Estimated Glomerular Filt Rate > 60; Glucose Random 91 mg/dL (60-115); Magnesium 1.8 mg/dL (1.6-2.6); Potassium 3.4 mmol/L (3.3-5.1); Sodium 138 mmol/L (135-145)
== END 2024-08-02 09:58 | disposition home or self-care (01) ==
LOC: HO.LAB 09:57
PROVIDERS: PCP Internal Medicine; Visit Provider Internal Medicine
DX: Z00.01 Encounter for general adult medical examination with abnormal findings (principal); R74.01 Elevation of levels of liver transaminase levels; E87.6 Hypokalemia; E11.21 Type 2 diabetes mellitus with diabetic nephropathy; E03.9 Hypothyroidism, unspecified
CPT/HCPCS: 36415; 80053; 83036; 83735

== ENCOUNTER 2024-09-09 09:56 | Outpatient (REF) | payer MEDICAID, SELFPAY ==
--- NOTE | ~2024-09-09 | US_ITS ---
CLINICAL HISTORY: TRANSAMINASE ELEVATED US abdomen complete Comparison: None Findings: The visualized pancreas is normal. The aorta and inferior vena cava are normal caliber. The appearance of the liver suggests fatty infiltration without focal lesion. There is no intrahepatic bile duct dilatation. The common duct is 6.0 mm in diameter. There is a sludge ball versus a 2 mm gallbladder polyp. The gallbladder is otherwise normal. There is no sonographic Sandra sign. The main portal vein is antegrade. The right kidney is 10.3 cm in length. The left kidney is 10.7 cm in length. There is a 3 mm parenchymal calculus. The spleen is normal. No ascites. IMPRESSION: 1. Hepatic steatosis. This document has been electronically signed by: Darek Aguillon MD on 09/10/2024 06:48:48
== END 2024-09-09 09:57 | disposition home or self-care (01) ==
LOC: HO.US 09:56
PROVIDERS: PCP Internal Medicine; Visit Provider Internal Medicine
DX: R74.01 Elevation of levels of liver transaminase levels (principal)
CPT/HCPCS: 76700

== ENCOUNTER → 2024-09-09 09:58 | Outpatient (BNV) | payer MEDICAID, SELFPAY | PROVIDERS: PCP Internal Medicine; Visit Provider Specialist | DX: K76.0 Fatty (change of) liver, not elsewhere classified (principal) | CPT/HCPCS: 76700 ==

== ENCOUNTER 2024-10-28 09:55 | Outpatient (REF) | payer MEDICAID, SELFPAY ==
[2024-10-28 11:16] LABS: Estimated Average Glucose 126 mg/dL
[2024-10-28 11:39] LABS: Alanine Aminotransferase 83 U/L (0-31); Albumin Level 3.8 g/dL (3.5-5.0); Alkaline Phosphatase 100 U/L (39-117); Anion Gap 13 (12-20); Aspartate Amino Transferase 121 U/L (5-31); Bilirubin Total 0.3 mg/dL (0.0-1.0); Blood Urea Nitrogen 18 mg/dL (9-16); Calcium 9.1 mg/dL (8.4-10.2); Carbon Dioxide 27 mmol/L (22-29); Chloride 104 mmol/L (96-108); Estimated Glomerular Filt Rate > 60; Ferritin 7 ng/mL (10-250); Glucose Random 83 mg/dL (60-115); Potassium 3.6 mmol/L (3.3-5.1); Sodium 140 mmol/L (135-145); Thyroid Stimulating Hormone 4.96 uIU/mL (0.32-4.0); Total Protein 7.7 g/dL (6.5-8.0)
[2024-11-01 17:53] LABS: Smooth Muscle Antibody 34 U (<20)
[2024-11-02 10:54] LABS: Anti Nuclear Antibody Screen NEGATIVE (NEGATIVE)
== END 2024-10-28 09:56 | disposition home or self-care (01) ==
LOC: HO.LAB 09:55
PROVIDERS: PCP Internal Medicine; Visit Provider Internal Medicine
DX: E03.9 Hypothyroidism, unspecified (principal); E11.21 Type 2 diabetes mellitus with diabetic nephropathy; F32.5 Major depressive disorder, single episode, in full remission; R74.01 Elevation of levels of liver transaminase levels
CPT/HCPCS: 36415; 80053; 82728; 83036; 84443; 86015; 86038

== ENCOUNTER 2024-12-07 10:03 | Outpatient (REF) | payer MEDICAID, SELFPAY ==
[2024-12-07 11:14] LABS: Hematocrit 21.8 % (37.0-47.0); Mean Corpuscular HGB Conc 28.4 g/dl (31.0-35.0); Mean Corpuscular Hemoglobin 18.2 pg (27.0-33.0); Mean Corpuscular Volume 64.1 fL (80.0-98.0); Mean Platelet Volume 9.8 fL (9.4-12.3); Platelet Count 328 X10*3/uL (160-400); Red Cell Distribution Width 19.2 % (11.0-16.0); White Blood Count 6.2 X10*3/uL (4.8-10.8)
[2024-12-07 11:17] LABS: Alanine Aminotransferase 52 U/L (0-31); Albumin Level 3.8 g/dL (3.5-5.0); Alkaline Phosphatase 98 U/L (39-117); Aspartate Amino Transferase 80 U/L (5-31); Bilirubin Direct 0.1 mg/dL (0.0-0.5); Bilirubin Total 0.3 mg/dL (0.0-1.0); Hemoglobin 6.2 g/dl (12.0-16.0); Iron 11 mcg/dL (30-160); Lipase 34 U/L (8-78); Percent Iron Saturation 3 % (15-50); Total Iron Binding Capacity 420 mcg/dL (228-428); Unsaturated Iron Binding 409 ug/dL
--- OUTSIDE RECORDS SUMMARY | 2024-12-07 11:42 | XMS_ITS ---
Author Organization [facility] Address [address] [place] [address] Care Team Providers Care Medical Laboratory Technologist Name Role Phone Karthikaly Iza Primary Care Provider Unavailab Reggie Medina Jr Unavailable REASON FOR VISIT critical lab Encounters Encounter Location Date Provider Diagnosis [facility] [address] [place] [phone] 12/07/2024 Reggie Perdomo Jr Plan Of Treatment Next Appt Details Provider Name:Reggie meyer Jr, 12/14/2024 11:00:00 AM, [address] [place] [address] , [place], [place], [phone], Progress Notes * JAVI ARANDAOB:1969 (54 yo F)Acc No.[id number]:12/07/2024 Patient:?KIKA ARANDA :1970???Age:54 Y???Sex:Female Address:[address] [place] [address] * * Date:?
--- OUTSIDE RECORDS SUMMARY | 2024-12-07 11:42 | XMS_ITS ---
Author Organization [facility] Address [address] [place] [address] Care Team Providers Care Extract Operator Name Role Phone Sarah Iza Primary Care Provider Reggie Murphy Jr Unavailable Allergies No Known Allergies REASON [...] Problem Status W/U Status Risk Notes Problem [id number] Iron deficiency anemia, unspecified iron deficiency anemia type (D50.9) Active confirmed Vital Signs Blood pressure systolic 111 mm Hg 12/03/19 25 Blood pressure diastolic 111 mm Hg 025 Height 64 in 12/02/2024 Weight 150.6 lbs 12/02/2024 BMI 25.85 kg/m2 12/02/2024 Encounters Encounter Location Date Provider Diagnosis [facility] [address] [place] [address] 12/02/2024 Reggie Perdomo Jr Iron deficiency anemia, [...] Provider Name:Reggie meyer Jr, 12/14/2024 11:00:00 AM, [address] [place] [address] , [place], [place], [phone], Progress Notes * JAVI ARANDAOB:1969 (54 yo F)Acc No.[id number]:12/02/2024 Progress Notes Patient:?KIKA ARANDA Provider:?Reggie Perdomo MD :1970???Age:54 Y???Sex:Female D ate:12/02/2024 Address:[address] [place], [place] [phone] Pcp:Iza Smith Subjective: * Chief Complaints: * [...] MD Date:?0 12/02/2024 Generated for Erik new/Arnoldo/eTransmitting on:?12/07/2024 11:42 AM EDT
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
--- OUTSIDE RECORDS SUMMARY | 2024-12-07 11:42 | XMS_ITS ---
Author Organization [facility] Address [address] [place] [phone] Care Team Providers Care Building Equipment Operator Name Role Phone Iza Smith Primary Care Provider Unavailab Reggie Medina Jr Encounters Encounter Location Date Provider Diagnosis [facility] [address] [place] [phone] 12/06/2024 Reggie Perdomo Jr Plan Of Treatment Next Appt Details Provider Name:Reggie meyer Jr, 12/14/2024 11:00:00 AM, [address] [place] [address] , [place], [place], [phone], Progress Notes * JAVI ARANDAOB:1969 (54 yo F)Acc No.[id number]:12/06/2024 Patient:?KIKA ARANDA :1970???Age:54 Y???Sex:Female Address:[address] [place] [address] * true * Date:? Generated for Printi shaq/Arnoldo/eTransmitting on:?12/07/2024 11:42 AM EDT
[2024-12-07 11:48] LABS: HBS Num1 2.94 mIU/mL (0-7.99); HBc Num1 0.14 S/CO (0.00-0.79); HBsAGNum1 0.42 S/CO (0.00-0.99); Hepatitis A Antibody IgM 0.17 Index (0-0.79); Hepatitis B Core Antibody Nonreactive (Nonreactive); Hepatitis B Surface Antigen Negative (Negative); ~HepC Num1 0.17 S/CO (0.00-0.79); ~Hepatitis A Antibody IgM Nonreactive (Nonreactive); ~Hepatitis B Surface Antibody NONREACTIVE (Nonreactive); ~Hepatitis C Antibody Nonreactive (Nonreactive)
[2024-12-10 11:04] LABS: Mitochondrial Antibodies NEGATIVE (NEGATIVE)
[2024-12-10 15:39] LABS: Anti Nuclear Antibody Screen NEGATIVE (NEGATIVE)
[2024-12-10 23:29] LABS: Smooth Muscle Antibody 28 U (<20)
[2024-12-11 20:13] LABS: FIB-ALT 37 U/L (6-29); FIB-Alpha-2-Macroglobulin 327 mg/dL (106-279); FIB-Apolipoprotein A1 169 mg/dL (101-198); FIB-GGT 35 U/L (3-70); FIB-Haptoglobin 154 mg/dL (43-212); FIB-Total Bilirubin 0.2 mg/dL (0.2-1.2); Liver Fibrosis Stage F0; Nec Inflam Act Grade A0-A1; Nec Inflam Act Score 0.17; Reference ID 5445098
== END 2024-12-07 10:04 | disposition home or self-care (01) ==
LOC: HO.LAB 10:03
PROVIDERS: PCP Internal Medicine; Visit Provider Internal Medicine Gastroenterology
DX: D50.9 Iron deficiency anemia, unspecified (principal); R79.89 Other specified abnormal findings of blood chemistry
CPT/HCPCS: 36415; 80076; 81596; 83540; 83690; 85027; 86015; 86038; 86381; 86704; 86706; 86709; 86803; 87340

== ENCOUNTER 2024-12-07 12:02 | Inpatient (IN) | payer MEDICAID, SELFPAY ==
[2024-12-07] VITALS (8 sets, daily range): BP systolic 120–134; BP diastolic 58–81; PULSE 71–82; RESP 10–18; TEMP 36–36.8; O2SAT 98–100; BMI 23.8
--- NOTE | 2024-12-07 12:26 | ED_ITS ---
HPI - General Adult General Chief complaint: Recheck/Abnormal Lab/Rx Stated complaint: Abnormal labs, sent by Dr García Seen by Provider: 12/07/24 12:57 History of Present Illness HPI narrative: Seen by Dr. Vang and note written by Dr. Vang. Related Data Home Medications ?Medication ?Instructions ?Recorded ?Confirmed calcium 600 mg (as 1 tab PO BID 07/29/23 12/07/24 carbonate)-vitamin D3 10 mcg (400 unit) tablet metformin 850 mg tablet 850 mg PO BID 07/29/23 12/07/24 sertraline 100 mg tablet 100 mg PO DAILY 07/29/23 12/07/24 levothyroxine 50 mcg capsule 50 mcg PO DAILY@0600 05/31/24 12/07/24 potassium chloride 10 mEq oral 10 meq PO DAILY 05/31/24 12/07/24 packet rosuvastatin 40 mg tablet 40 mg PO BEDTIME 12/07/24 12/07/24 sacubitril 24 mg-valsartan 26 mg 1 tab PO BID 12/07/24 12/07/24 tablet (Entresto) Previous Rx's ?Medication ?Instructions ?Recorded metoprolol succinate 25 mg 25 mg PO DAILY #90 tabs 09/24/24 tablet,extended release 24 hr aspirin 81 mg tablet,delayed 81 mg PO DAILY #90 tabs 10/04/24 release Allergies Allergy/AdvReac Type Severity Reaction Status Date / Time No Known Allergies Allergy Verified 12/07/24 12:23 [facility] Past Medical History Medical History (Updated 12/07/24 @ 15:13 by Rene Vang MD) Essential hypertension Type 2 diabetes mellitus with unspecified complications Ischemic cardiomyopathy Atherosclerotic cardiovascular disease Surgical History (Updated 12/07/24 @ 16:06 by Maria Del Rosario Colin NP) Hx of cardiac catheterization Family History Family History Mother Stroke Social History Social History (Updated 12/07/24 @ 17:25 by Maria Del Rosario Colin NP) Household Members: Family Household Members Other:: Lives with her mother Housing: Apartment Do you presently have visiting nurse or other home services: No Alcohol intake: never Patient Tobacco Use Status: Never used Tobacco Physical Exam ED Vital Signs: Vital Signs - 24 hr 12/07/24 12:22 12/07/24 14:11 12/07/24 14:29 Temperature 97.5 F 98.0 F 98.0 F Pulse Rate 79 76 79 Respiratory Rate 16 12 10 L Blood Pressure 124/58 L 120/71 133/76 Pulse Oximetry 100 Oxygen Delivery Method Room Air 12/07/24 16:06 Temperature 98.3 F Pulse Rate 80 Respiratory Rate 14 Blood Pressure 133/74 Pulse Oximetry Oxygen Delivery Method BMI result Body Mass Index 23.8 Course Course Course Narrative: RME: 54-year-old female sent by GI clinic for anemia. H and H6.2. Patient has self asymptomatic. Patient denies any abdominal pain, nausea, vomiting, weakness, rectal bleeding, vomiting blood, chest pain or shortness of breath. Patient is pale in skin. Charge nurse made aware. Patient to be brought back to the ED. Reevaluation(s) Reevaluation #1: Stable clinically getting blood transfusion Time: 15:12 Medications Administered Generic Name Dose Route Start Last Admin Trade Name Freq PRN Reason Stop Dose Admin Iron Sucrose 100 mg/ Sodium 55 mls @ 220 mls/hr 12/07/24 18:00 12/07/24 21:13 Chloride IV 12/09/24 18:14 Infused DAILY@1800 [facility] Infusion Sodium Chloride 3 ml 12/08/24 00:00 12/07/24 21:06 0.9 % Sodium Chloride Flush 3 Ml Syringe [facility] 3 [facility] Administration Medical Decision Making Lab Data 12/07/24 12:36 12/07/24 12:36 Labs: Lab Results 12/07/24 12/07/24 12/07/24 Range/Units 12:36 13:02 14:20 WBC 6.1 (4.8-10.8) X10*3/uL RBC 3.44 L (4.20-5.50) X10*6/uL Hgb 6.3 L* (12.0-16.0) g/dl Hct 21.9 L (37.0-47.0) % MCV 63.7 L (80.0-98.0) fL MCH 18.3 L (27.0-33.0) pg MCHC 28.8 L (31.0-35.0) g/dl RDW 19.3 H (11.0-16.0) % Plt Count 303 (160-400) X10*3/uL MPV 9.1 L (9.4-12.3) fL Immature Gran % (Auto) 0.2 (0.0-0.4) % Neut % (Auto) 78.4 H (45-73) % Lymph % (Auto) 10.6 L (20-40) % [place] % (Auto) 9.8 (2-11) % Eos % (Auto) 0.7 (0-4) % Baso % (Auto) 0.3 (0-2) % Lymph # (Auto) 0.7 L (1.2-4.9) X10*3/uL [place] # (Auto) 0.6 (0.1-1.2) X10*3/uL Eos # (Auto) 0.0 (0.0-0.4) X10*3/uL Baso # (Auto) 0.0 (0.0-0.2) X10*3/uL Abs Immat Gran (auto) 0.01 (0.00-0.03) X10*3/uL Absolute Neuts (auto) 4.8 (2.0-8.3) x10*3/uL Absolute Nucleated RBC 0.000 (0.0-0.012) X10*3/uL Nucleated RBC % (auto) 0.0 (0.0-0.2) /100WBC PT 11.6 (10.9-12.4) SEC INR 1.0 (0.9-1.1) APTT 32.3 (26.0-36.8) SEC Sodium 138 (135-145) mmol/L Potassium 4.4 D (3.3-5.1) mmol/L Chloride 107 (96-108) mmol/L Carbon Dioxide 26 (22-29) mmol/L Anion Gap 9 L (12-20) BUN 17 H (9-16) mg/dL Creatinine 0.80 (0.5-1.4) mg/dL Estim Creat Clear Calc 73.4 Estimated GFR > 60 Random Glucose 100 (60-115) mg/dL Calcium 9.4 (8.4-10.2) mg/dL Iron 12 L (30-160) mcg/dL TIBC 386 (228-428) mcg/dL % Saturation 3 L (15-50) % Unsat Iron Binding 374 ug/dL Total Bilirubin 0.3 (0.0-1.0) mg/dL AST 79 H (5-31) U/L ALT 52 H (0-31) U/L Alkaline Phosphatase 88 (39-117) U/L Total Protein 7.2 (6.5-8.0) g/dL Albumin 3.8 (3.5-5.0) g/dL Stool Occult Blood NEGATIVE (NEGATIVE) Blood Type O Positive Antibody Screen NEGATIVE Crossmatch See Detail Discharge Plan Discharge Clinical Impression: Anemia Qualifiers: Anemia type: unspecified type Qualified Code(s): D64.9 - Anemia, unspecified Patient Disposition: Admitted As Inpatient Interventions: Admission Worksheet (ED) Last Done: 12/07/24 18:26 Discharge Date/Time: 12/07/24 20:57
[2024-12-07 12:40] LABS: MANUAL DIFF FLAG NO
[2024-12-07 12:41] LABS: Basophils Percent Auto 0.3 % (0-2); Eosinophils Percent Auto 0.7 % (0-4); Hematocrit 21.9 % (37.0-47.0); Imm Gran Abs Auto 0.01 X10*3/uL (0.00-0.03); Imm Gran Pct Auto 0.2 % (0.0-0.4); Lymphocytes Absolute Auto 0.7 X10*3/uL (1.2-4.9); Lymphocytes Percent Auto 10.6 % (20-40); Mean Corpuscular HGB Conc 28.8 g/dl (31.0-35.0); Mean Corpuscular Hemoglobin 18.3 pg (27.0-33.0); Mean Platelet Volume 9.1 fL (9.4-12.3); Monocytes Absolute Auto 0.6 X10*3/uL (0.1-1.2); Monocytes Percent Auto 9.8 % (2-11); Neutrophils Absolute Auto 4.8 x10*3/uL (2.0-8.3); Neutrophils Percent Auto 78.4 % (45-73); Platelet Count 303 X10*3/uL (160-400); Red Blood Count 3.44 X10*6/uL (4.20-5.50); Red Cell Distribution Width 19.3 % (11.0-16.0); White Blood Count 6.1 X10*3/uL (4.8-10.8)
[2024-12-07 12:44] LABS: Mean Corpuscular Volume 63.7 fL (80.0-98.0)
[2024-12-07 12:47] LABS: Hemoglobin 6.3 g/dl (12.0-16.0); Prothrombin Time 11.6 SEC (10.9-12.4)
[2024-12-07 12:50] LABS: Partial Thromboplastin Time 32.3 SEC (26.0-36.8)
[2024-12-07 13:05] LABS: Alanine Aminotransferase 52 U/L (0-31); Albumin Level 3.8 g/dL (3.5-5.0); Anion Gap 9 (12-20); Aspartate Amino Transferase 79 U/L (5-31); Bilirubin Total 0.3 mg/dL (0.0-1.0); Blood Urea Nitrogen 17 mg/dL (9-16); Calcium 9.4 mg/dL (8.4-10.2); Carbon Dioxide 26 mmol/L (22-29); Chloride 107 mmol/L (96-108); Creatinine Clr Calc Pharmacy 73.4; Estimated Glomerular Filt Rate > 60; Glucose Random 100 mg/dL (60-115); Potassium 4.4 mmol/L (3.3-5.1); Sodium 138 mmol/L (135-145); Total Protein 7.2 g/dL (6.5-8.0)
--- NOTE | 2024-12-07 13:26 | ED_ITS ---
HPI - General Adult General Chief complaint: Recheck/Abnormal Lab/Rx Stated complaint: Abnormal labs, sent by Time Seen by Provider: 12/07/24 12:57 Source: patient Mode of arrival: ambulatory Limitations: no limitations History of Present Illness HPI narrative: This is a 54 years old female sent here by the Gastroenterology because found to be anemic from outpatient labs. Patient is supposed to have an outpatient colonoscopy she had routine blood work done. Patient denies any chest pain shortness of breath. She has a history of type 2 diabetes, hypertension and ischemic cardiomyopathy. Onset (ago): day(s) (1) Radiation: non-radiation Severity: mild Relieving factors: none Associated symptoms: denies other symptoms Related Data Home Medications ?Medication ?Instructions ?Recorded ?Confirmed calcium 600 mg (as 1 tab PO BID 07/29/23 05/31/24 carbonate)-vitamin D3 10 mcg (400 unit) tablet metformin 850 mg tablet 850 mg PO BID 07/29/23 05/31/24 sertraline 100 mg tablet 100 mg PO DAILY 07/29/23 05/31/24 levothyroxine 50 mcg capsule 50 mcg PO DAILY 05/31/24 05/31/24 levothyroxine 88 mcg tablet 50 mcg PO DAILY 05/31/24 05/31/24 potassium chloride 10 mEq oral 10 meq PO DAILY 05/31/24 05/31/24 packet Previous Rx's ?Medication ?Instructions ?Recorded atorvastatin 80 mg tablet 80 mg PO BEDTIME #90 tabs 10/06/23 sacubitril 24 mg-valsartan 26 mg 1 tab PO BID 30 days #60 tabs 09/01/24 tablet (Entresto) metoprolol succinate 25 mg 25 mg PO DAILY #90 tabs 09/24/24 tablet,extended release 24 hr aspirin 81 mg tablet,delayed 81 mg PO DAILY #90 tabs 10/04/24 release Allergies Allergy/AdvReac Type Severity Reaction Status Date / Time No Known Allergies Allergy Verified 12/07/24 12:23 Review of Systems 2 Constitutional: Constitutional: Reports no additional constitutional complaints ENT: Reports system reviewed and no additional complaints, except as documented PMFSH Past Medical History Attestation statement: The following information was validated with the patient. Medical History Essential hypertension Type 2 diabetes mellitus with unspecified complications Ischemic cardiomyopathy Atherosclerotic cardiovascular disease Surgical History Hx of cardiac catheterization Family History Family History Mother Stroke Social History Social History Alcohol intake: never Patient Tobacco Use Status: Never used Tobacco Smoked in Last 30 Days: No Use of substances other than those prescribed or required for medical reasons: No Advance Directives: No Advance Directives Information Provided: Yes Do you have a plan to hurt others: No Plan Physical Exam ED Vital Signs: Vital Signs - 24 hr 12/07/24 12:22 12/07/24 14:11 12/07/24 14:29 Temperature 97.5 F 98.0 F 98.0 F Pulse Rate 79 76 79 Respiratory Rate 16 12 10 L Blood Pressure 124/58 L 120/71 133/76 Pulse Oximetry 100 Oxygen Delivery Method Room Air BMI result Body Mass Index 23.8 No acute distress Const General: cooperative Nutritional Appearance: average body habitus Orientation/consciousness: patient oriented x3 HENMT Head: Yes normal to inspection General nose exam: Normal external nose present Face and sinus: Yes normal facial exam Mouth: Normal oral and palatal mucosa present Neck Neck: Yes normal visual inspection and Yes full ROM Chest Chest palpation & inspection: normal inspection of the chest Resp Effort & Inspection: normal respiratory effort Auscultation: clear to auscultation bilaterally Cardio Jugular venous distension: no JVD Rate: regular rate Rhythm: regular rhythm GI Inspection: Yes normal to inspection Palpation (GI): Soft to palpation, not firm and nontender Percussion: Yes normal to percussion Auscultation: normal bowel sounds Other: Rectal exam done brown stool heme-negative Skin General skin exam: no rashes or lesions noted, elasticity normal and turgor normal Lesions: no lesions Rashes: no rashes Wounds: no wounds Neuro General: patient oriented x3 Course Reevaluation(s) Reevaluation #1: Patient was sent here to the emergency department because of anemia she has multiple comorbidity including ischemic cardiomyopathy LAD stent we will plan transfusion 2 units ordered Time: 15:20 Medical Decision Making Medical Decision Making MDM Narrative: Patient is here because anemic, she is otherwise asymptomatic we will go ahead with a blood transfusion Differential Diagnosis Differential Diagnoses: The differential diagnosis associated with the presentation includes Iron deficiency anemia/GI bleeding Admission/Observation Consideration of admission/observation: Escalation of care including admission/observation considered Lab Data MDM Lab Attestation statement: I reviewed the patient's lab results. 12/07/24 12:36 12/07/24 12:36 Labs: Lab Results 12/07/24 12/07/24 12/07/24 Range/Units 12:36 13:02 14:20 WBC 6.1 (4.8-10.8) X10*3/uL RBC 3.44 L (4.20-5.50) X10*6/uL Hgb 6.3 L* (12.0-16.0) g/dl Hct 21.9 L (37.0-47.0) % MCV 63.7 L (80.0-98.0) fL MCH 18.3 L (27.0-33.0) pg MCHC 28.8 L (31.0-35.0) g/dl RDW 19.3 H (11.0-16.0) % Plt Count 303 (160-400) X10*3/uL MPV 9.1 L (9.4-12.3) fL Immature Gran % (Auto) 0.2 (0.0-0.4) % Neut % (Auto) 78.4 H (45-73) % Lymph % (Auto) 10.6 L (20-40) % [place] % (Auto) 9.8 (2-11) % Eos % (Auto) 0.7 (0-4) % Baso % (Auto) 0.3 (0-2) % Lymph # (Auto) 0.7 L (1.2-4.9) X10*3/uL [place] # (Auto) 0.6 (0.1-1.2) X10*3/uL Eos # (Auto) 0.0 (0.0-0.4) X10*3/uL Baso # (Auto) 0.0 (0.0-0.2) X10*3/uL Abs Immat Gran (auto) 0.01 (0.00-0.03) X10*3/uL Absolute Neuts (auto) 4.8 (2.0-8.3) x10*3/uL Absolute Nucleated RBC 0.000 (0.0-0.012) X10*3/uL Nucleated RBC % (auto) 0.0 (0.0-0.2) /100WBC PT 11.6 (10.9-12.4) SEC INR 1.0 (0.9-1.1) APTT 32.3 (26.0-36.8) SEC Sodium 138 (135-145) mmol/L Potassium 4.4 D (3.3-5.1) mmol/L Chloride 107 (96-108) mmol/L Carbon Dioxide 26 (22-29) mmol/L Anion Gap 9 L (12-20) BUN 17 H (9-16) mg/dL Creatinine 0.80 (0.5-1.4) mg/dL Estim Creat Clear Calc 73.4 Estimated GFR > 60 Random Glucose 100 (60-115) mg/dL Calcium 9.4 (8.4-10.2) mg/dL Iron 12 L (30-160) mcg/dL TIBC 386 (228-428) mcg/dL % Saturation 3 L (15-50) % Unsat Iron Binding 374 ug/dL Total Bilirubin 0.3 (0.0-1.0) mg/dL AST 79 H (5-31) U/L ALT 52 H (0-31) U/L Total Protein 7.2 (6.5-8.0) g/dL Albumin 3.8 (3.5-5.0) g/dL Stool Occult Blood NEGATIVE (NEGATIVE) Blood Type O Positive Antibody Screen NEGATIVE Crossmatch See Detail External Record Review External record reviewed: Inpatient record Chronic Conditions Patient?s care impacted by: Other (Ischemic cardiomyopathy/LAD stent) Critical Care Time Critical Care Time Critical Care Time: Yes Total Critical Care Time: 60 Attestation: Severe anemia transfusion with 2 units of packed red blood cell. Discharge Plan Discharge Clinical Impression: Anemia Qualifiers: Anemia type: unspecified type Qualified Code(s): D64.9 - Anemia, unspecified Patient Disposition: Admitted As Inpatient Print Language: Bulgarian
--- NOTE | 2024-12-07 13:36 | PC.NURSE ---
Consent for blood transfusion completed at bedside with Dr. Vang present. Form placed in Pts chart.
[2024-12-07 14:28] LABS: OBS Int Ctl Valid YES; OBS1 NEGATIVE (NEGATIVE)
[2024-12-07 14:49] LABS: Iron 12 mcg/dL (30-160); Percent Iron Saturation 3 % (15-50); Total Iron Binding Capacity 386 mcg/dL (228-428); Unsaturated Iron Binding 374 ug/dL
--- NOTE | 2024-12-07 16:04 | PM.IMHP ---
History of Present Illness Date of Service: 12/07/24 Chief Complaint: Anemia 54-year-old woman sent in by her Gastroenterology office due to anemia found by outpatient labs., patient was scheduled to have outpatient colonoscopy but ended up having blood work done which showed anemia. Patient was referred to a air antisubmarine officer due to hepatic steatosis and transaminitis. Patient reports he was never any history of anemia and she did not notice any rectal bleeding or red, maroon or dark blood in her stool. She denies any recent illness and reported that she had been in her usual state of health. Patient denied any chest pain, shortness breath, nausea, vomiting, diarrhea. Hemoglobin and hematocrit 6.2/21.8 stable vital signs, mildly elevated AST and ALT, stool occult negative, hepatitis panel negative. 2 units of packed red blood cells. She will be admitted for further management and treatment of acute anemia. Review of Systems Review of Systems: Denies any recent fever chills or decrease in appetite respiratory denies any shortness of breath or cough cardiovascular denied chest pain gastrointestinal denies any dysphagia abdominal pain nausea vomiting or diarrhea genitourinary denies any dysuria frequency or hematuria musculoskeletal denies any joint pain or swelling neuropsych denies any weakness or seizures all other systems reviewed are negative [facility] Medical History (Updated 12/07/24 @ 15:13 by Rene Vang MD) Essential hypertension Type 2 diabetes mellitus with unspecified complications Ischemic cardiomyopathy Atherosclerotic cardiovascular disease Family History Mother Stroke Surgical History (Updated 12/07/24 @ 16:06 by Maria Del Rosario Colin NP) Hx of cardiac catheterization Social History (Updated 12/07/24 @ 17:25 by Maria Del Rosario Colin NP) Household Members Other:: Lives with her mother Alcohol intake: never Patient Tobacco Use Status: Never used Tobacco Meds Allergies Allergy/AdvReac Type Severity Reaction Status Date / Time No Known Allergies Allergy Verified 12/07/24 12:23 Home Medications ?Medication ?Instructions ?Recorded ?Confirmed ?Last Taken ?Type calcium 600 mg (as 1 tab PO BID 07/29/23 05/31/24 Unknown History carbonate)-vitamin D3 10 mcg (400 unit) tablet metformin 850 mg tablet 850 mg PO BID 07/29/23 05/31/24 Unknown History sertraline 100 mg tablet 100 mg PO DAILY 07/29/23 05/31/24 Unknown History levothyroxine 50 mcg capsule 50 mcg PO DAILY 05/31/24 05/31/24 Unknown History potassium chloride 10 mEq oral 10 meq PO DAILY 05/31/24 05/31/24 Unknown History packet rosuvastatin 40 mg tablet 40 mg PO BEDTIME 12/07/24 Unknown History sacubitril 24 mg-valsartan 26 mg 1 tab PO BID 12/07/24 Unknown History tablet (Entresto) Physical Exam Vital Signs and Narrative: Vital Signs: Last Vital Signs Temp 98.0 F 12/07/24 14:29 Pulse 79 12/07/24 14:29 Resp 10 L 12/07/24 14:29 BP 133/76 12/07/24 14:29 Pulse Ox 100 12/07/24 12:22 O2 Del Method Room Air 12/07/24 12:22 BMI result Body Mass Index 23.8 Appearing in no acute distress head is normocephalic atraumatic eyes pupils are PERRLA sclera is anicteric mouth throat mucous membranes are intact and moist neck is supple no lymphadenopathy, no JVD noted lung sounds are clear to auscultation heart regular rate rhythm, clear S1, S2 positive bowel sounds, abdomen is soft, nontender neuro patient is alert x3, no focal deficits Results Labs 12/07/24 12:36 12/07/24 12:36 Labs: Laboratory Results - last 24 hr 12/07/24 12/07/24 12/07/24 12:36 13:02 14:20 MCV 63.7 L MCH 18.3 L MCHC 28.8 L RDW 19.3 H Plt Count 303 MPV 9.1 L Immature Gran % (Auto) 0.2 Neut % (Auto) 78.4 H Lymph % (Auto) 10.6 L [place] % (Auto) 9.8 Eos % (Auto) 0.7 Baso % (Auto) 0.3 Lymph # (Auto) 0.7 L [place] # (Auto) 0.6 Eos # (Auto) 0.0 Baso # (Auto) 0.0 Abs Immat Gran (auto) 0.01 Absolute Neuts (auto) 4.8 Absolute Nucleated RBC 0.000 Nucleated RBC % (auto) 0.0 PT 11.6 INR 1.0 APTT 32.3 Anion Gap 9 L Estim Creat Clear Calc 73.4 Estimated GFR > 60 Random Glucose 100 Calcium 9.4 Iron 12 L TIBC 386 % Saturation 3 L Unsat Iron Binding 374 Total Bilirubin 0.3 AST 79 H ALT 52 H Total Protein 7.2 Albumin 3.8 Stool Occult Blood NEGATIVE Blood Type O Positive Antibody Screen NEGATIVE Crossmatch See Detail Assessment and Plan (1) Essential hypertension: Status: Acute (2) Anemia: Qualifiers: Anemia type: unspecified type Qualified Code(s): D64.9 - Anemia, unspecified Status: Acute Plan 54-year-old woman admitted for acute anemia with no obvious blood loss Likely iron-deficiency Anemia, unspecified Patient denies any history of anemia Hemoglobin and hematocrit 6.2/21.8 Iron 11/TIBC 420/% 3 Iron infusion x3 days Stool occult negative Transfused 2 units of packed red blood cells in the ER Check CBC post transfusion GI consultation, follows with Dr. Perdomo Transaminitis History of hepatic steatosis ASA 80/ALT 52 Hepatitis panel negative Diabetes mellitus type 2 Sliding scale, ADA diet Essential hypertension Continue home medications Ischemic cardiomyopathy/coronary artery disease Hold aspirin, continue beta-santosh, Entresto Hypothyroidism Continue levothyroxine Mental health Continue home medications Medication reconciliation pending DVT prophylaxis with pneumatic compression boots secondary to anemia Full code Quality Stroke Does the patient have a stroke diagnosis?: No VTE Prior VTE?: No VTE Risk Level:: Medical - moderate - high VTE Device Contraindication: N/A - Device Ordered VTE Drug Contraindication: Treatment Not Indicated
--- NOTE | 2024-12-07 16:27 | PC.NURSE ---
Pharmacy at bedside for med rec.
[2024-12-07 17:00] LABS: Alkaline Phosphatase 88 U/L (39-117)
--- NOTE | 2024-12-07 17:13 | PC.NURSE ---
Attending at bedside.
--- NOTE | 2024-12-07 17:39 | PHA.MEDREC ---
Addendum entered by Yung Whatley roshni 12/07/24 17:46: med rec reviewed Original Note: Pharmacy Consult ? Medication Reconciliation Pharmacy has completed the medication reconciliation. Spoke to patient to confirm med list. Patient was able to name all her medications. All claims match what patient confirmed. Patient only to Levothyroxine 50 mcg today. All other medications was yesterday.
[2024-12-07] MEDS: Iron Sucrose Complex 100 MG in 0.9 % Sodium Chloride 50 ML 220 MG IV (18:38)
[2024-12-07] MEDS: 0.9 % Sodium Chloride Flush 3 ML SYRINGE IVFLUSH (21:06)
[2024-12-08 02:55] VITALS: BP 128/71; PULSE 75; RESP 16; TEMP 36.1; O2SAT 97
[2024-12-08 07:02] VITALS: BP 130/77; PULSE 71; RESP 15; TEMP 36.5; O2SAT 99
[2024-12-08 07:02] LABS: Hematocrit 29.6 % (37.0-47.0); Hemoglobin 8.9 g/dl (12.0-16.0); Mean Corpuscular HGB Conc 30.1 g/dl (31.0-35.0); Mean Corpuscular Hemoglobin 21.2 pg (27.0-33.0); Mean Corpuscular Volume 70.6 fL (80.0-98.0); Mean Platelet Volume 9.7 fL (9.4-12.3); Platelet Count 313 X10*3/uL (160-400); Red Blood Count 4.19 X10*6/uL (4.20-5.50); Red Cell Distribution Width 24.2 % (11.0-16.0); White Blood Count 6.9 X10*3/uL (4.8-10.8)
[2024-12-08 07:09] LABS: Alanine Aminotransferase 51 U/L (0-31); Albumin Level 3.6 g/dL (3.5-5.0); Anion Gap 9 (12-20); Aspartate Amino Transferase 85 U/L (5-31); Bilirubin Total 0.3 mg/dL (0.0-1.0); Blood Urea Nitrogen 18 mg/dL (9-16); Calcium 9.4 mg/dL (8.4-10.2); Carbon Dioxide 27 mmol/L (22-29); Chloride 108 mmol/L (96-108); Creatinine Clr Calc Pharmacy 73.4; Estimated Glomerular Filt Rate > 60; Glucose Random 86 mg/dL (60-115); Potassium 4.3 mmol/L (3.3-5.1); Sodium 140 mmol/L (135-145); Total Protein 7.1 g/dL (6.5-8.0)
[2024-12-08] MEDS: 0.9 % Sodium Chloride Flush 3 ML SYRINGE IVFLUSH (07:10)
[2024-12-08 07:15] LABS: Glucose, Whole Blood 78 mg/dL (60-115)
[2024-12-08 07:17] LABS: B Type Natriuretic Peptide 99 pg/mL (<100)
[2024-12-08 07:43] LABS: Alkaline Phosphatase 76 U/L (39-117)
[2024-12-08] MEDS: Sertraline HCL 100 MG TABLET PO (07:58)
[2024-12-08] MEDS: Atorvastatin Calcium 80 MG TABLET PO (07:58)
[2024-12-08] MEDS: Levothyroxine Sodium 50 MCG TABLET PO (07:58)
[2024-12-08] MEDS: Potassium Chloride ER 10 MEQ TABLET.ER PO (07:58)
[2024-12-08] MEDS: Sacubitril/Valsartan 24/26 1 TAB TABLET PO (07:58)
[2024-12-08] MEDS: Calcium + Vitamin D 250 MG TABLET 500 MG PO (07:58)
[2024-12-08] MEDS: Metoprolol Succinate ER 25 MG TAB.ER.24H PO (07:58)
--- NOTE | 2024-12-08 08:22 | PM.EVENT ---
Event Note Date of Service: 12/08/24 Event Note: GI consult dictated EBONI without active gi bleeding s/p 2 u PRBCs and iv iron offered EGD/colonoscopy tomorrow as inmoshe Pepe prefers to keep outpt appt next week. Ok for d/c. Time Spent With Patient Time: Total time managing care of this patient today ____ minutes.
--- NOTE | 2024-12-08 09:23 | MHC.CM.PN ---
Addendum entered by Alessia Ga RN 12/08/24 11:45: Medically cleared for dc home self care via [employer]. Original Note: PATIENT LIVES IN AN APARTMENT W/ HER MOTHER. FUNCTIONALLY INDEPENDENT. DENIES USE OF DME OR SERVICES. PCP MARIELLA MOHAMUD MD REPORTS SHE HAS AN HCP NAMING HER SISTER, MICHAEL [facility]. COPY REQUESTED. DP: HOME SELF CARE. SHUTTLE TRANSPORT. CM WILL CONTINUE TO FOLLOW.
--- NOTE | 2024-12-08 10:01 | CONS_ITS ---
DATE OF SERVICE: 12/08/2024 REFERRING PHYSICIAN: Maria Del Rosario Colin NP REASON FOR CONSULTATION: Iron-deficiency anemia. HISTORY OF PRESENT ILLNESS: The patient is a pleasant 54-year-old woman, known to me from recent evaluation. She was seen in the office for iron-deficiency anemia and elevated liver function tests in the setting of fatty liver. She was evaluated with laboratory studies as an outpatient, which documented a hematocrit of 21.8 and was referred to the emergency room. The patient denies any rectal bleeding, black stools, hematemesis, or melena. She had been scheduled as an outpatient for an upper GI endoscopy and colonoscopy. She was evaluated in the emergency department and admitted to the hospital after confirmatory laboratory studies were done. She was transfused 2 units of packed red blood cells with appropriate increase in her hematocrit and was also given IV iron. Stool occult blood testing has been negative. PAST MEDICAL HISTORY: 1. Hypertension. 2. Diabetes mellitus. 3. Ischemic cardiomyopathy. 4. Elevated liver function tests with fatty liver. 5. Atherosclerotic cardiovascular disease. 6. Coronary artery disease with stent placement. CURRENT MEDICATIONS: Her current medication list is reviewed in the chart. ALLERGIES: THERE ARE NONE REPORTED. FAMILY HISTORY: This is reviewed with the patient and is noncontributory. SOCIAL HISTORY: There is no current tobacco, alcohol, or substance abuse. REVIEW OF SYSTEMS: SKIN: No pruritus. HEENT: Negative. CARDIOPULMONARY: No shortness of breath or chest pain. GASTROINTESTINAL: As above. GENITOURINARY: Negative. NEUROPSYCHIATRIC: Negative. PHYSICAL EXAMINATION: GENERAL: Shows a pleasant female, lying comfortably in bed. VITAL SIGNS: Reviewed in electronic medical record and are stable. SKIN: Anicteric. HEENT: Shows no scleral icterus. NECK: Without lymphadenopathy or thyromegaly. LUNGS: Clear. HEART: Shows a regular rate and rhythm. S1, S2. No murmur. ABDOMEN: Soft without focal masses or tenderness. Bowel sounds are present. No organomegaly is noted. EXTREMITIES: Without edema. LABORATORY DATA: Reviewed. IMPRESSION: 1. Iron-deficiency anemia. 2. Elevated liver function tests in the setting of fatty liver. PLAN: She was scheduled for outpatient endoscopy and colonoscopy next week. I did offer her inpatient bowel prep and procedure scheduling, but she prefers to redo this as an outpatient, which is reasonable as there has been no rectal bleeding or change in her bowel habits. Thank you for asking me to see her. I will follow her in the hospital with you. MD RADHA Mustafa/BECCA / [id number]
[2024-12-08 11:02] LABS: Glucose, Whole Blood 175 mg/dL (60-115)
--- NOTE | 2024-12-08 11:44 | P.DS_ITS ---
DS: Providers Provider Date of Service: 12/08/24 Date of admission: 12/07/24 16:09 Date of discharge: 12/08/24 Primary care physician: Iza Smith MD Consults: 12/07/24 17:20 Consult to Gastroenterology Routine Consulting Provider: Reggie Perdomo Reason for consultation: anemia,gi bleed DS: Diagnosis Discharge Diagnosis (1) Iron deficiency anemia: Status: Acute DS: Summary Hospital Course Hospital Course: From the history and physical by the admitting hospitalist, Maria Del Rosario Colin NP, 12/07/24: 54-year-old woman sent in by her Gastroenterology office due to an emia found by outpatient labs., patient was scheduled to have outpatient colonoscopy but ended up having blood work done which showed anemia. 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 Patient reports he was never any history of anemia and she did not notice any rectal bleeding or red, maroon or dark blood in her stool. She denies any recent illness and reported that she had been in her usual state of health. Patient denied any chest pain, shortness breath, nausea, vomiting, diarrhea. Hemoglobin and hematocrit 6.2/21.8 stable vital signs, mildly elevated AST and ALT, stool occult negative, hepatitis panel negative. 2 units of packed red blood cells. She will be admitted for further management and treatment of acute anemia. She was admitted to the medical-surgical unit. No overt GI bleeding and stool guaiac-negative. Hgb increased appropriately to 8.9 after 2 units of packed red blood cells transfused. IV iron was also given. Gastroenterology was consulted. Inpatient EGD and colonoscopy was offered but she deferred it to the planned outpatient EGD and colonoscopy to be done next week by Dr Reggie Perdomo. She was prescribed oral iron. Time Attestation Discharge Coordination Time (in mins): 35 Quality: Safe Use of Opioids Does Pt have an Active Cancer Diagnosis on the Problem List?: No Quality: Stroke Does the patient have a stroke diagnosis?: No Physical Exam Vital Signs: Vital Signs: Last Vital Signs Temp 97.7 F 12/08/24 07:02 Pulse 71 12/08/24 07:02 Resp 15 12/08/24 07:02 BP 130/77 12/08/24 07:02 Pulse Ox 99 12/08/24 07:02 O2 Del Method Room Air 12/08/24 07:02 BMI result Body Mass Index 23.8 Gen: in no acute distress HEENT: sclera anicteric, moist mucus membranes Neck: supple Lungs: clear to auscultation bilaterally Heart: regular rate and rhythm, no murmurs Abd: soft, non-tender, non-distended Ext: no edema Skin: warm/well-perfused Neuro: alert and oriented x3, no focal findings Psych: appropriate affect DS: Data Data Completed and Pending Completed studies during hospitalization [Text1]: Laboratory Results WBC 6.9 X10*3/uL (4.8-10.8) 12/08/24 06:15 RBC 4.19 X10*6/uL (4.20-5.50) L D 12/08/24 06:15 Hgb 8.9 g/dl (12.0-16.0) L D 12/08/24 06:15 Hct 29.6 % (37.0-47.0) L D 12/08/24 06:15 MCV 70.6 fL (80.0-98.0) L D 12/08/24 06:15 MCH 21.2 pg (27.0-33.0) L 12/08/24 06:15 MCHC 30.1 g/dl (31.0-35.0) L 12/08/24 06:15 RDW 24.2 % (11.0-16.0) H 12/08/24 06:15 Plt Count 313 X10*3/uL (160-400) 12/08/24 06:15 MPV 9.7 fL (9.4-12.3) 12/08/24 06:15 Immature Gran % (Auto) 0.2 % (0.0-0.4) 12/07/24 12:36 Neut % (Auto) 78.4 % (45-73) H 12/07/24 12:36 Lymph % (Auto) 10.6 % (20-40) L 12/07/24 12:36 Providence % (Auto) 9.8 % (2-11) 12/07/24 12:36 Eos % (Auto) 0.7 % (0-4) 12/07/24 12:36 Baso % (Auto) 0.3 % (0-2) 12/07/24 12:36 Lymph # (Auto) 0.7 X10*3/uL (1.2-4.9) L 12/07/24 12:36 Providence # (Auto) 0.6 X10*3/uL (0.1-1.2) 12/07/24 12:36 Eos # (Auto) 0.0 X10*3/uL (0.0-0.4) 12/07/24 12:36 Baso # (Auto) 0.0 X10*3/uL (0.0-0.2) 12/07/24 12:36 Abs Immat Gran (auto) 0.01 X10*3/uL (0.00-0.03) 12/07/24 12:36 Absolute Neuts (auto) 4.8 x10*3/uL (2.0-8.3) 12/07/24 12:36 Absolute Nucleated RBC 0.000 X10*3/uL (0.0-0.012) 12/08/24 06:15 Nucleated RBC % (auto) 0.0 /100WBC (0.0-0.2) 12/08/24 06:15 PT 11.6 SEC (10.9-12.4) 12/07/24 12:36 INR 1.0 (0.9-1.1) 12/07/24 12:36 APTT 32.3 SEC (26.0-36.8) 12/07/24 12:36 Sodium 140 mmol/L (135-145) 12/08/24 06:15 Potassium 4.3 mmol/L (3.3-5.1) 12/08/24 06:15 Chloride 108 mmol/L (96-108) 12/08/24 06:15 Carbon Dioxide 27 mmol/L (22-29) 12/08/24 06:15 Anion Gap 9 (12-20) L 12/08/24 06:15 BUN 18 mg/dL (9-16) H 12/08/24 06:15 Creatinine 0.80 mg/dL (0.5-1.4) 12/08/24 06:15 Estim Creat Clear Calc 73.4 12/08/24 06:15 Estimated GFR > 60 12/08/24 06:15 POC Glucose 175 mg/dL (60-115) H 12/08/24 10:57 Random Glucose 86 mg/dL (60-115) 12/08/24 06:15 Calcium 9.4 mg/dL (8.4-10.2) 12/08/24 06:15 Iron 12 mcg/dL (30-160) L 12/07/24 14:20 TIBC 386 mcg/dL (228-428) 12/07/24 14:20 % Saturation 3 % (15-50) L 12/07/24 14:20 Unsat Iron Binding 374 ug/dL 12/07/24 14:20 Total Bilirubin 0.3 mg/dL (0.0-1.0) 12/08/24 06:15 AST 85 U/L (5-31) H 12/08/24 06:15 ALT 51 U/L (0-31) H 12/08/24 06:15 Alkaline Phosphatase 76 U/L (39-117) 12/08/24 06:15 B-Natriuretic Peptide 99 pg/mL (<100) 12/08/24 06:15 Total Protein 7.1 g/dL (6.5-8.0) 12/08/24 06:15 Albumin 3.6 g/dL (3.5-5.0) 12/08/24 06:15 Stool Occult Blood NEGATIVE (NEGATIVE) 12/07/24 14:20 Blood Type O Positive 12/07/24 13:02 Antibody Screen NEGATIVE 12/07/24 13:02 Crossmatch See Detail 12/07/24 13:02 Discharge Plan Discharge Anticipated Discharge Date/Time: 12/08/24 11:40 Patient Disposition: Home, Self-Care Discharge Diagnosis: iron deficiency anemia Referrals: Iza Smith MD [Primary Care Provider] - 1 Week Reggie Perdomo MD [Physician] - 1 Week Discharge Medications: New ferrous sulfate 325 mg (65 mg iron) tablet 325 mg PO Q OTHER DAY Qty: 15 0RF Continued metoprolol succinate 25 mg tablet extended release 24 hr 25 mg PO DAILY Qty: 90 3RF aspirin 81 mg tablet,delayed release (DR/EC) 81 mg PO DAILY Qty: 90 3RF rosuvastatin 40 mg tablet 40 mg PO BEDTIME Entresto 24-26 mg tablet 1 tab PO BID sertraline 100 mg tablet 100 mg PO DAILY metformin 850 mg tablet 850 mg PO BID calcium carbonate-vitamin D3 600 mg-10 mcg (400 unit) tablet 1 tab PO BID levothyroxine 50 mcg capsule 50 mcg PO DAILY@0600 potassium chloride 10 mEq packet 10 meq PO DAILY Discharge Orders: Discharge Order (Routine); Ordered 12/08/24 Ordered By: Kristina Leal Diet: Advance to usual diet Activity on Discharge: As tolerated Stand Alone Forms: Patient Portal Discharge page Print Language: Romansh Care Plan Goals: treatment of anemia Health Concerns: iron deficiency anemia Plan of Treatment: take iron as prescribed; increase iron-rich foods follow up with Dr Perdomo next week for EGD and colonoscopy Please follow up with your primary care doctor within 1 week. Return to the hospital if you experience recurrent or worsening symptoms. Assessment: See Discharge Summary.
== END 2024-12-08 12:20 | disposition home or self-care (01) | DRG 663 ==
LOC: HO.ED 15:17 → HO.EDOVER 16:22 → HO.S3 19:17
PROVIDERS: Physician Assistant; Admitting Provider Nurse Practitioner Acute Care; Emergency Provider Emergency Medicine; PCP Internal Medicine; Visit Provider Family Medicine
DX: D50.9 Iron deficiency anemia, unspecified (principal); K76.0 Fatty (change of) liver, not elsewhere classified; E03.9 Hypothyroidism, unspecified; I25.10 Atherosclerotic heart disease of native coronary artery without angina pectoris; I25.5 Ischemic cardiomyopathy; E11.9 Type 2 diabetes mellitus without complications; I10 Essential (primary) hypertension; Z95.5 Presence of coronary angioplasty implant and graft; Z79.82 Long term (current) use of aspirin; Z79.84 Long term (current) use of oral hypoglycemic drugs; Z79.890 Hormone replacement therapy; Z79.899 Other long term (current) drug therapy
CPT/HCPCS: 36415; 80053; 82272; 82947; 83540; 83880; 85025; 85027; 85610; 85730; 86850; 86900; 86901; 86923; 99285; J1756; P9016

== ENCOUNTER → 2024-12-07 16:09 | Outpatient (BNV) | payer MEDICAID, SELFPAY | PROVIDERS: Admitting Provider Nurse Practitioner Acute Care; Emergency Provider Emergency Medicine; PCP Internal Medicine; Visit Provider Nurse Practitioner Acute Care | DX: D50.9 Iron deficiency anemia, unspecified (principal) | CPT/HCPCS: 99223; 99239 ==

== ENCOUNTER 2024-12-14 08:58 | Day surgery (SDC) | payer MEDICAID, SELFPAY ==
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
--- OUTSIDE RECORDS SUMMARY | 2024-12-06 17:22 | XMS_ITS ---
Author Organization [facility] Address [address] [place] [address] Care Team Providers Care Emblem Maker Name Role Phone Iza Smith Primary Care Provider Unavailab Reggie Medina Jr Unavailable Encounters Encounter Location Date Provider Diagnosis [facility] [address] [place] [phone] 12/06/2024 Reggie Perdomo Jr Plan Of Treatment Next Appt Details Provider Name:Reggie meyer Jr, 12/14/2024 11:00:00 AM, [address] [place] [address] , [place], [place], [phone], Progress Notes * JAVI ARANDAOB:1969 (54 yo F)Acc No.[id number]:12/06/2024 Patient:?KIKA ARANDA :1970???Age:54 Y???Sex:Female Address:[address] [place] [address] * true * Date:? Generated for Printi shaq/Arnoldo/eTransmitting on:?12/06/2024 05:22 PM EDT
[2024-12-09 13:57] VITALS: BMI 24.2
--- NOTE | 2024-12-10 09:30 | P.CONAN_ITS ---
Documented by User: Jocelyn García NP 12/10/24 09:34 HPI - Anesthesia Eval Consult details Narrative: 54yo F for Upper Endoscopy and Colonoscopy [place] [facility] [place] s/t ID and stent 06/2023. Stable at 06/2024 office visit for 1 year f/u [facility] Active Problems Active Problems: All Active Problems Iron deficiency anemia (Acute) Anemia (Acute) Stented coronary artery (Acute) Essential hypertension (Acute) Type 2 diabetes mellitus with unspecified complications (Acute) Ischemic cardiomyopathy (Acute) Atherosclerotic cardiovascular disease (Acute) Past Medical History Medical History (Updated 12/09/24 @ 13:57 by Alva August, RN) Hypothyroidism Diabetes Elevated LFTs Fatty liver CAD (coronary artery disease) Anemia History of blood transfusion Essential hypertension Type 2 diabetes mellitus with unspecified complications Ischemic cardiomyopathy Atherosclerotic cardiovascular disease Family History Family History Mother Stroke Surgical History Surgical History (Updated 12/09/24 @ 13:56 by Alva August, RN) H/O heart artery stent Hx of colonoscopy Hx of cardiac catheterization Social History Social History (Updated 12/09/24 @ 14:00 by Alva August, RN) Household Members: Other Household Members Other:: mother Housing: Apartment Are you a primary health care facility administrator to a significant other at home: No Do you presently have visiting nurse or other home services: No Alcohol intake: never Patient Tobacco Use Status: Never used Tobacco e-Cigarette/Vaping Use: Never Used Use of substances other than those prescribed or required for medical reasons: No Have you been hit, kicked, punched, or otherwise hurt by someone within the past year? If so, by whom?: No Are you DNR?: No Advance Directives: No Advance Directives Information Provided: Yes Advance Directives on File: No Poor oral hygiene: Yes (4 loose bottom front teeth) service: No Meds Allergies Allergy/AdvReac Type Severity Reaction Status Date / Time No Known Allergies Allergy Verified 12/14/24 09:52 Home Medications ?Medication ?Instructions ?Recorded ?Confirmed ?Last Taken ?Type calcium 600 mg (as 1 tab PO BID 07/29/23 12/14/24 12/06/24 History carbonate)-vitamin D3 10 mcg (400 unit) tablet metformin 850 mg tablet 850 mg PO BID 07/29/23 12/14/24 12/06/24 History sertraline 100 mg tablet 100 mg PO DAILY 07/29/23 12/14/24 12/14/24 History levothyroxine 50 mcg capsule 50 mcg PO DAILY@0600 05/31/24 12/14/24 12/14/24 History potassium chloride 10 mEq oral 10 meq PO DAILY 05/31/24 12/14/24 12/06/24 History packet rosuvastatin 40 mg tablet 40 mg PO BEDTIME 12/07/24 12/14/24 12/06/24 History sacubitril 24 mg-valsartan 26 mg 1 tab PO BID 12/07/24 12/14/24 12/06/24 History tablet (Entresto) Exam Height,Weight and Vital Signs: Height 5 ft 6 in Weight 68.039 kg Narrative Narrative: ECHO 07/2023 Conclusions: - The left ventricular systolic function is normal. The calculated ejection fraction is 55% by biplane method. - The apical inferior, mid inferior, and mid anteroseptal segments are hypokinetic. The mid inferoseptal segment is akinetic. - No obvious valvular pathology seen on this study. EKG 06/2024 Details: EKG with underlying sinus rhythm at 78/Min; no significant ST-T changes and otherwise unremarkable. Normal IN and corrected QT. In the cardiac catheterization 06/2023, severe lesion to the proximal to mid LAD requiring ENEDELIA. Moderate disease in the left circumflex, OM/PDA/PLV, but not intervened. LVEDP was 6. Assessment and Plan Assessment Anesthesia Assessment: Chart Reviewed Documented by User: Natasha Smalls MD 12/14/24 10:23 [facility] Past Medical History Medical History (Updated 12/09/24 @ 13:57 by Alva August RN) Hypothyroidism Diabetes Elevated LFTs Fatty liver CAD (coronary artery disease) Anemia History of blood transfusion Essential hypertension Type 2 diabetes mellitus with unspecified complications Ischemic cardiomyopathy Atherosclerotic cardiovascular disease Family History Family History Mother Stroke Family history of problems with anesthesia: No Surgical History Surgical History (Updated 12/09/24 @ 13:56 by Alva August, ALEXANDER) H/O heart artery stent Hx of colonoscopy Hx of cardiac catheterization History of Problems with Anesthesia: No Social History Social History (Updated 12/09/24 @ 14:00 by Alva August, RN) Household Members: Other Household Members Other:: mother Housing: Apartment Are you a primary health care facility administrator to a significant other at home: No Do you presently have visiting nurse or other home services: No Alcohol intake: never Patient Tobacco Use Status: Never used Tobacco e-Cigarette/Vaping Use: Never Used Use of substances other than those prescribed or required for medical reasons: No Have you been hit, kicked, punched, or otherwise hurt by someone within the past year? If so, by whom?: No Are you DNR?: No Advance Directives: No Advance Directives Information Provided: Yes Advance Directives on File: No Poor oral hygiene: Yes (4 loose bottom front teeth) service: No Meds Allergies Allergy/AdvReac Type Severity Reaction Status Date / Time No Known Allergies Allergy Verified 12/14/24 09:52 Home Medications ?Medication ?Instructions ?Recorded ?Confirmed ?Last Taken ?Type calcium 600 mg (as 1 tab PO BID 07/29/23 12/14/24 12/06/24 History carbonate)-vitamin D3 10 mcg (400 unit) tablet metformin 850 mg tablet 850 mg PO BID 07/29/23 12/14/24 12/06/24 History sertraline 100 mg tablet 100 mg PO DAILY 07/29/23 12/14/24 12/14/24 History levothyroxine 50 mcg capsule 50 mcg PO DAILY@0600 05/31/24 12/14/24 12/14/24 History potassium chloride 10 mEq oral 10 meq PO DAILY 05/31/24 12/14/24 12/06/24 History packet rosuvastatin 40 mg tablet 40 mg PO BEDTIME 12/07/24 12/14/24 12/06/24 History sacubitril 24 mg-valsartan 26 mg 1 tab PO BID 12/07/24 12/14/24 12/06/24 History tablet (Entresto) Exam Airway Mallampati Class: II TM Dist: >3cm Neck ROM: Full Assessment and Plan Assessment Anesthesia Assessment: Anesthesia Plan Discussed Final Anesthetic Review Family History of Problems with Anesthesia: No History of Problems with Anesthesia: No NPO: Yes ASA Class: III Final Preanesthetic Review: No Changes in Pt Med Stat, Meds/Allgs Chart Reviewed, Consent Obtained/Reviewed and Anes Risks/Benef Reviewed Patient Risk: Intermediate Procedure Risk: Low Anesthetic Plan Anesthetic Plan: TIVA Disposition: Standard PACU
[2024-12-14 09:52] LABS: Glucose, Whole Blood 77 mg/dL (60-115)
[2024-12-14 09:53] VITALS: BP 139/71; PULSE 73; RESP 20; TEMP 36.3; O2SAT 99; BMI 23.3
--- NOTE | 2024-12-14 10:08 | P.HPSUR_ITS ---
Pre-Procedural Eval Section A - 24 Hr Update-Section A only Date of Service: 12/14/24 Section B - Complete if H&P > 30 days Chief Complaint: Plasmodium falciparum malaria, unspecified Details of Present Illness: see H&P no changes Relevant Family History (Specify if Yes): No Relevant Social History: None Present Medications: see Short Stay Collaborative assessment Medical History: No relevant PMH History of Previous Operations: No relevant previous surgery Allergies: Allergies Allergy/AdvReac Type Severity Reaction Status Date / Time No Known Allergies Allergy Verified 12/14/24 09:52 Review of Systems Sugical H&P ROS: Negative: Constitution, Cardiovascular, Respiratory, Neurological, Psychiatric, Hem-Onc, Allergic/Immunologic, Gastrointestinal, Genitourinary, Musculoskeletal, Integumentary, Endocrine and Eyes/Ears/Nose/Thro at Exam Surgical H&P Exam: Normal: HEENT, Normal: Heart, Normal: Lungs, Normal: Extremities, Normal: Abdomen, Normal: Skin and Normal: Neurological Plan Diagnosis/Plan: Unchanged I have reviewed the history and physical and performed a pertinent physical examination on my patient. No changes have occurred unless specified. Time Spent With Patient Time: Total time managing care of this patient today ____ minutes.
--- NOTE | 2024-12-14 10:08 | MHC.SHP ---
Pre-Procedural Eval Section A - 24 Hr Update-Section A only Date of Service: 12/14/24 The patient is an INPATIENT: No Changes since office visit: No Cold of Flu in the past 2 weeks, No New Medical Problems, No Changes in Medication and No Patient answered all questions The patient has been examined within 24 hours of the surgical procedure. The History & Physical has been completed within 30 days and I have reviewed it.: Yes Section B - Complete if H&P > 30 days Chief Complaint: Plasmodium falciparum malaria, unspecified Allergies: Allergies Allergy/AdvReac Type Severity Reaction Status Date / Time No Known Allergies Allergy Verified 12/14/24 09:52 Plan I have reviewed the history and physical and performed a pertinent physical examination on my patient. No changes have occurred unless specified. Time Spent With Patient Time: Total time managing care of this patient today ____ minutes.
[2024-12-14] MEDS: Lactated Ringers 1,000 ML 100 ML IVCONT (10:09)
--- NOTE | 2024-12-14 10:52 | P.BOP_ITS ---
Brief Operative Note Date of Service: 12/14/24 Pre-op diagnosis: EBONI Post-op diagnosis: same Procedure: EGD colon Surgeon: Reggie Perdomo MD Anesthesia: MAC Was an Special Needs Bus Driver used for this Procedure?: No Estimated blood loss (mL): 5 Pathology: other Condition: stable Disposition: PACU
[2024-12-14 10:59] VITALS: BP 90/53; PULSE 68; RESP 12; TEMP 36.4; O2SAT 99
[2024-12-14 11:14] VITALS: BP 116/71; PULSE 67; RESP 15; TEMP 36.3; O2SAT 97
--- NOTE | 2024-12-14 14:59 | OP_ITS ---
DATE OF SERVICE: 12/14/2024 SURGEON: Reggie Perdomo MD PREOPERATIVE DIAGNOSIS: Iron deficiency anemia POSTOPERATIVE DIAGNOSIS: Same PROCEDURE PERFORMED: Upper endoscopy with biopsy, colonoscopy to the cecum. ESTIMATED BLOOD LOSS: COMPLICATIONS: ANESTHESIA: Monitored anesthesia care. ASSISTANTS: SPECIMENS: DESCRIPTION OF PROCEDURE: A history and physical was performed. The risks and benefits of the procedure were explained to the patient. Informed consent was obtained. The patient was placed in the left lateral decubitus position. The Olympus video gastroscope was introduced into the esophagus, stomach, and duodenum. Examination was performed. The scope was removed. She was repositioned for colonoscopy. A digital rectal exam was performed and was found to be normal. The Olympus pediatric video colonoscope was introduced into the rectum and advanced to the cecum. The cecum was identified by transillumination, palpation, and identification of ileocecal valve. Examination was performed. The scope was removed. She tolerated both procedures well and was returned to the recovery area in stable condition. Abdominal wall pressure was used to assist in advancement of the scope along with the patient repositioning. FINDINGS: Upper endoscopy: 1. Esophagus: The esophagus was normal. 2. Stomach: The stomach showed 2 slightly inflamed less than 10 mm polyps in the body and antrum. Antral biopsies were obtained. The polyps appeared consistent with hyperplastic polyps. 3. Duodenum: The bulb and 2nd portion were normal. Biopsies were obtained from the 2nd portion. Colonoscopy: The terminal ileum was not examined. The visualized colonic mucosa was normal. No polyps were identified. No mass lesion was seen. Random sigmoid biopsies were obtained. Retroflexed examination showed small internal hemorrhoids, and there were mild to moderate diverticulosis involving the sigmoid. IMPRESSION: 1. Gastric polyps. 2. Iron deficiency anemia. 3. Normal colonoscopy. RECOMMENDATION: 1. Follow up the biopsy results. 2. Repeat colonoscopy is recommended in 10 years for average-risk individuals. MD RADHA Mustafa/TERRIEL / [id number] MTDD
== END 2024-12-14 12:12 | disposition home or self-care (01) ==
PROVIDERS: PCP Internal Medicine; Visit Provider Internal Medicine Gastroenterology
PROC: (CPT 45380; principal; 2024-12-14 11:00)
DX: D50.9 Iron deficiency anemia, unspecified (principal); K57.30 Diverticulosis of large intestine without perforation or abscess without bleeding; K64.8 Other hemorrhoids; D64.9 Anemia, unspecified; K29.50 Unspecified chronic gastritis without bleeding; K31.7 Polyp of stomach and duodenum; K76.0 Fatty (change of) liver, not elsewhere classified; I10 Essential (primary) hypertension; E11.9 Type 2 diabetes mellitus without complications; I25.10 Atherosclerotic heart disease of native coronary artery without angina pectoris; Z95.5 Presence of coronary angioplasty implant and graft; I25.5 Ischemic cardiomyopathy; Z79.899 Other long term (current) drug therapy; Z79.84 Long term (current) use of oral hypoglycemic drugs
CPT/HCPCS: 45380; 43239; 82947; 88305; 88313; 88342; J2003; J2704

== ENCOUNTER 2025-02-01 09:01 | Outpatient (REF) | payer MEDICAID, SELFPAY ==
[2025-02-01 09:16] LABS: MANUAL DIFF FLAG NO
--- OUTSIDE RECORDS SUMMARY | 2025-02-01 09:43 | XMS_ITS | Patient Health Record ---
Author Organization [facility] Address [address] [place] [address] Care Team Providers Care Supervisor Photoengraving Name Role Phone Iza Smith Primary Care Provider Reggie Murphy Jr Unavailable [phone] Allergies No Known Allergies Results Component Value Reference Range Notes Liver Fibrosis Pnl Reviewed date:12/13/2024 10:23:29 AM Interpretation: Performing Lab:[facility], [address] [place] [phone] Notes/Report: Liver Fibrosis Score 0.20 Liver Fibrosis Stage F0 Liver Fibrosis Interpretation SEE NOTE no fibrosis Fibro Test Score (f) Metavir Score f>=0 and f<=0.21 : F0 (no fibrosis) f>0.21 and f<=0.27 : F0-F1 (no fibrosis) f>0.27 and f<=0.31 : F1 (minimal fibrosis) f>0.31 and f<=0.48 : F1-F2 (minimal fibrosis) f>0.48 and f<=0.58 : F2 (moderate fibrosis) f>0.58 and f<=0.72 : F3 (advanced fibrosis) f>0.72 and f<=0.74 : F3-F4 (advanced fibrosis) f>0.74 and f<=1.00 : F4 (severe fibrosis) Nec Inflam Act Score 0.17 Nec Inflam Act Grade A0-A1 Nec Inflam Act Interpretation SEE NOTE no activity ActiTest Score (a) Metavir Score a>=0 and a<=0.17 : A0 (no activity) a>0.17 and a<=0.29 : A0-A1 (no activity) a>0.29 and a<=0.36 : A1 (minimal activity) a>0.36 and a<=0.52 : A1-A2 (minimal activity) a>0.52 and a<=0.60 : A2 (significant activity) a>0.60 and a<=0.62 : A2-A3 (significant activity) a>0.62 and a<=1.00 : A3 (severe activity) ABD-Cafoo-7-Macroglobul in 327 106-279 mg/dL FIB-Haptoglobin 154 43-212 mg/dL FIB-Apolipoprotein A1 169 101-198 mg/dL FIB-Total Bilirubin 0.2 0.2-1.2 mg/dL FIB-GGT 35 3-70 U/L FIB-ALT 37 6-29 U/L Reference ID [id number] Footnote SEE NOTE The reliability of results is dependent on compliance with the preanalytical and analytical conditions recommended by [employer]. The tests have to be deferred for: acute hemolysis, acute hepatitis, acute inflammation, extra hepatic cholestasis. The advice of a specialist should be sought for interpretation in chronic hemolysis and Gilbert's syndrome. The test interpretation is not validated in liver transplant patients. Isolated extreme values of one of the components should lead to caution in interpreting the results. In case of discordance between a biopsy result and a test, it is recommended to seek the advice of a specialist. The causes of these discordances could be due to a flaw of the test or to a flaw in the biopsy: i.e. a liver biopsy has a 33% variability rate for one fibrosis stage. FibroTest is interpretable for chronic hepatitis B and C, alcoholic and non alcoholic steatosis. ActiTest is interpretable for chronic hepatitis B and C. The performance characteristics have been determined by [facility]. It has not been cleared or approved by the U.S. Food and Drug Administration. Performance characteristics refer to the analytical performance of the test. Sobrr, the associated logo, Looxii and all associated [employer] turk are the registered trademarks of [employer]. All third libertarian turk - (R) and (TM) - are the property of their respective owners. (C) 9560-1939 [employer]. All rights reserved. THIS TEST WAS PERFORMED AT: [employer] [facility] [place] [address] [place] [address] SHILPI MONGE MD,PHD,JUAN MURPHY Reflex Titer and Pattern Reviewed date:12/13/2024 10:23:40 AM Interpretation: Performing Lab:[facility], [address] [place] [phone] Notes/Report: Anti Nuclear Antibody Screen NEGATIVE NEGATIVE MURPHY IFA is a first line screen for detecting the presence of up to approximately 150 autoantibodies in various autoimmune diseases. A negative MURPHY IFA result suggests an MURPHY-associated autoimmune disease is not present at this time, but is not definitive. If there is high clinical suspicion for Sjogren's syndrome, testing for anti-SS-A/Ro antibody should be considered. Anti-Rhonda-1 antibody should be considered for clinically suspected inflammatory myopathies. AC-0: Negative International Consensus on MURPHY Patterns (https://doi.org/10.1515/ dpyj-2794-8939) For additional information, please refer to http://education.Humansized/faq/UDT463 (This link is being provided for informational/ educational purposes only.) THIS TEST WAS PERFORMED AT: [employer] [address] [place] [phone] AMANDA JACKSON MD Anti Nuclear Antibody Titer TNP Anti Nuclear Antibody Pattern TNP MURPHY Titer 2 TNP MURPHY Pattern 2 TNP MURPHY Titer 3 TNP MURPHY Pattern 3 TNP Complete Blood Count no Diff Reviewed date:12/09/2024 07:14:03 AM Interpretation: Performing Lab:[facility], [address] [place] [phone] Notes/Report: White Blood Count 6.2 4.8-10.8 X10*3/uL [...] /100WBC NRBC Abs Auto 0.000 0.0-0.012 X10*3/uL Pathologist Review - CBC Reviewed date:12/09/2024 07:13:52 AM Interpretation: Performing Lab:[facility], [address] [place] [phone] Notes/Report: Pathologist Review - CBC SEE NOTE Hypochromic microcytic anemia; scattered elliptocytes, ovalocytes and occasional targets are present. Please correlate with iron studies. - Francisco Shelton M.D. Pathology Liver Panel Reviewed date:12/09/2024 07:14:43 AM Interpretation: Performing Lab:[facility], [address] [place] [phone] Notes/Report: Bilirubin Total 0.3 0.0-1.0 mg/dL Bilirubin Direct 0.1 0.0-0.5 mg/dL Aspartate Amino Transferase 80 5-31 U/L Alanine Aminotransferase 52 0-31 U/L Total Protein 7.0 6.5-8.0 g/dL Albumin Level 3.8 3.5-5.0 g/dL Alkaline Phosphatase 98 39-117 U/L IRON PROFILE Reviewed date:12/07/2024 04:40:14 PM Interpretation: Performing Lab:[facility], [address] [place] [phone] Notes/Report: Iron 11 30-160 mcg/dL Total Iron Binding Capacity 420 228-428 mcg/dL Percent Iron Saturation 3 15-50 % Unsaturated Iron Binding 409 Lipase Reviewed date:12/09/2024 07:14:13 AM Interpretation: Performing Lab:[facility], [address] [place] [phone] Notes/Report: Lipase 34 8-78 U/L Mitochondrial Antibody Reviewed date:12/15/2024 08:34:04 AM Interpretation: Performing Lab:[facility], [address] [place] [phone] Notes/Report: Mitochondrial Antibodies NEGATIVE NEGATIVE The immunofluorescence assay (IFA) procedure reveals the possible presence of another autoantibody. Consider requesting order code 263, Smooth Muscle Antibody with Reflex to Titer, if clinically indicated. THIS TEST WAS PERFORMED AT: [facility] [address] [place] [phone] AMANDA JACKSON MD Mitochondrial Ab Titer TNP Smooth Muscle Antibody Reviewed date:12/15/2024 08:33:58 AM Interpretation: Performing Lab:[address] [phone] Notes/Report: Smooth Muscle Antibody 28 <20 U Reference Range: <20 U: Negative >or=20 U: Positive Antibodies recognizing actin are the main component of smooth muscle antibodies associated with auto- immune liver disease. Actin antibodies are found in approximately 75% of patients with autoimmune hepatitis (AIH) type 1, approximately 65% of patients with autoimmune cholangitis, approximately 30% of patients with primary biliary cirrhosis and approximately 2% of healthy controls. High values are closely correlated with AIH type 1. THIS TEST WAS PERFORMED AT: [employer]/[address] [phone] LAYA NAVARRO MD,PHD Hepatitis A,B,C Profile Reviewed date:12/09/2024 07:15:32 AM Interpretation: Performing Lab:[address] [address] Notes/Report: Hepatitis A Antibody IgM Nonreactive Nonreactive IgM antibodies to HAV not detected; does not exclude early acute or recovered HAV infection. Hepatitis B Surface Antibody NONREACTIVE Nonreactive Nonreactive: < 8.00 mIU/mL Hepatitis B Core Antibody Nonreactive Nonreactive Hepatitis C Antibody Nonreactive Nonreactive Antibodies to HCV not detected; does not exclude early acute HCV infection. Hepatitis B Surface Antigen Negative Negative Glucose, Whole Blood Reviewed date:12/14/2024 02:44:20 PM Interpretation: Performing Lab:[address] [phone] Notes/Report: Glucose, Whole Blood 77 60-115 mg/dL METER # : [id number] Pathology Reviewed date:12/20/2024 08:57:28 AM Interpretation: Performing Lab:[address] [address] Notes/Report: Name: Kika Aranda Age/Sex: 54/F : 1970 Unit#: [id number] Attend Dr: Reggie Perdomo MD Re12/14/24 Status: [facility] Location: [facility] Disch: SPEC : [id number] RECD: 12/14/24-1138 STATUS: LAVINIAMonika ERIKA NUM: [id number] JHONATAN: 12/14/24-[address] [facility] [address]: Reggie Perdomo MD ENTERED: 12/14/24-1145 SP TYPE: Surgical OTHR DR: Iza Smith MD ORDERED: HE Stain/9, Gross Micro L4/3, IHC, Special st. 2/2, H. pylori, AB/PAS/2 Diagnosis A. Duodenum, biopsy: Duodenal mucosa within normal limits. B. Stomach, antrum, biopsy: - Antral-type mucosa with severe chronic active inflammation. - Rare forms suspicious for H. pylori. C. Colon, sigmoid, biopsy: Colonic mucosa within normal limits. Comment: The absence of definitive H.pylori is somewhat surprising given the degree of inflammation. Consider alternative testing, as clinically appropriate. Clinical History Pre-Op Dx: Iron deficiency anemia Post-Op Dx: Gastric polyps, normal colon Microscopic Description A-C. Microscopic sections examined. No metaplastic changes are seen, supported by AB/PAS stains (A and B); rare forms suspicious for Helicobacter organisms are seen, supported by H. pylori immunostain (B) - non-specific background staining present. Material Received A. Duodenal bx B. Antral bx C. Sigmoid bx Gross Description Received in three parts. Part A: Received in formalin labeled ?duodenal bx? are 2 andres-pink irregular tissue fragments each measuring 0.3 cm, submitted in toto in a cassette labeled A. Part B: Received in formalin labeled ?antral bx? is a 0.35 cm pale, madden-white rectangular tissue fragment, submitted in toto in a cassette labeled B. Part C: Received in formalin labeled ?sigmoid bx? are 2 andres-pink irregular and rectangular tissue fragments measuring 0.25 and 0.35 cm, submitted in toto in a cassette labeled C. CEDS CONTINUED ON NEXT PAGE Name: Kika Aranda Age/Sex: 54/F : 1970 Unit#: [id number] Attend Dr: Reggie Perdomo MD Re12/14/24 Status: [facility] Location: [facility] Disch: SPEC : RECD: 12/14/24 STATUS: MOMO JAMES NUM: [id number] JHONATAN: 12/14/24-[address]: Reggie Perdomo MD ENTERED: 12/14/24 SP TYPE: Surgical OTHR DR: Iza Smith MD ORDERED: HE Stain/9, Gross Micro L4/3, IHC, Special st. 2/2, H. pylori, AB/PAS/2 Gross Description (Continued) Special studies ordered and performed: Immunostain for H. pylori on B; AB/PAS stains on A and B Copies To: Iza Smith MD [facility] [address] [place] [address] [address] [place] [address] Reggie Perdomo MD [facility] [address] [place] [address] [address] [place] [address] Signed (signatur e on file) Francisco Shelton MD 12/16/24 1314 END OF REPORT Reason For Referral Referring Provider First Name Iza Referring Provider Last Name Sarah Referring Provider Speciality Internal M edicine Referred Organization [facility] Referred Provider Reggie Perdomo Jr Referred Address [address] [place] [address],[address],[place],[address],[place] Referred Provider Specialty Gastroentero logy General Notes [...] EVERY DAY Oral for 90 Days Active Omeprazole 20 MG 1 Orally Twice daily for 14 days 12/20/2024 Active metroNIDAZOLE 500 MG [address] ee times a day for 14 days 12/20/2024 Active Sertraline HCl 100 MG TAKE 1 TABLET BY M OUTH EVERY DAY Oral for 90 Days Active Tetracycline HCl 500 MG 1 Orally 4 times daily for 14 days 12/20/2024 Active Potassium Chloride ER 10 MEQ TAKE 1 CAPS ULE BY MOUTH EVERY DAY Oral for 90 Days Active Bismuth Subsalicylate 525 MG 1 Orally 4 times daily for 14 days 12/20/2024 Active Entresto 24-26 MG TAKE 1 TABLET BY MANISHA TH TWICE A DAY Oral for 30 Days Active Problems Problem Type SNOMED Code ICD Code Onset Dates Problem Status W/U Status Risk Notes Problem 79898637 Other iron deficiency anemia (D50.8) Active confirmed Problem 41736186 Iron deficiency anemia, unspecified iron deficiency anemia type (D50.9) Active confirmed Vital Signs Blood pressure diastolic 111 mm Hg 12/02/2024 Height 64 in 12/02/2024 Blood pressure systolic 111 mm Hg 12/02/2024 Weight 150.6 lbs 12/02/2024 BMI 25.85 kg/m2 12/02/2024 Encounters Encounter Location Date Provider Diagnosis [facility] Outpatient [address], [place] [id number] 12/14/2024 Reggie Perdomo Jr Gastric polyps K31.7 and Iron deficiency anemia D50.9 [facility] [place] [phone] 12/02/2024 Reggie Perdomo Jr Iron deficiency anemia, unspecified iron deficiency anemia type D50.9 and Elevated LFTs R79.89 [facility] [address] [place] [phone] 12/06/[address] [facility] [address] [place], [place] [address] 12/07/[address] [facility] [address] [place], [place] [address] 12/08/[address] [facility] [address] [facility] [place], [place] [address] 12/08/[address] [facility] [address] [facility] [place], [place] [address] 12/08/[address] [facility] [address] [facility] [place], [place] [address] 12/20/2024 Reggie Perdomo Jr H. pylori infection A04.8 Assessments Encounter Date Diagnosis (ICD Code) Assessment Notes Treatment Notes Treatment Clinical Notes Section Notes 12/14/2024 Iron deficiency anemia (ICD-10 - D50.9) 12/14/2024 Gastric polyps (ICD-10 - K31.7) 12/02/2024 Elevated LFTs (ICD-10 - R79.89) We discussed iron deficiency anemia today. We discussed diet including iron intake. She will have further evaluation with upper endoscopy and colonoscopy. She is advised to stop aspirin 1 week before the procedure and metformin the day before the procedure. She will have further evaluation of her liver function tests with metabolic and autoimmune markers. These will be obtained. Follow-up will be pending the results. 12/02/2024 Iron deficiency anemia, unspecified iron deficiency anemia type (ICD-10 - D50.9) We discussed iron deficiency anemia today. We discussed diet including iron intake. She will have further evaluation with upper endoscopy and colonoscopy. She is advised to stop aspirin 1 week before the procedure and metformin the day before the procedure. She will have further evaluation of her liver function tests with metabolic and autoimmune markers. These will be obtained. Follow-up will be pending the results. 12/20/2024 H. pylori infection (ICD-10 - A04.8) Plan Of Treatment Pending Test Test Name Order Date LIVER PROFILE 12/02/2024 LIPASE 12/02/2024 IRON + IBC (FE) 12/02/2024 CBC w/o DIFF 12/02/2024 HEPATITIS A,B,C PROFILE 12/02/2024 MITOCHONDRIAL AB 12/02/2024 SMOOTH MUSCLE ANTIBODIES 12/02/2024 H pylori Ag Stool 12/20/2024 Future Test Test Name Order Date COLONOSCOPY 10/06/2015 UPPER GI ENDOSCOPY 12/02/2024 COLONOSCOPY 12/02/2024 Next Appt Details Provider Name:Reggie meyer Jr, 03/17/2025 01:15:00 PM, [address] [facility], [address], [place], [address], Insurance Providers Payer Name Payer Address Payer Phone Subscriber Number Group Number Insured Name Patient Relationship to Insured Coverage Start Date Coverage End Date MEDICA[employer] OF [employer] [address] [place] [id number] KIKA FREITAS Self - patient is the [...]
[2025-02-01 09:51] LABS: Basophils Percent Auto 0.4 % (0-2); Eosinophils Absolute Auto 0.1 X10*3/uL (0.0-0.4); Eosinophils Percent Auto 1.6 % (0-4); Hematocrit 31.1 % (37.0-47.0); Hemoglobin 9.5 g/dl (12.0-16.0); Imm Gran Abs Auto 0.01 X10*3/uL (0.00-0.03); Imm Gran Pct Auto 0.2 % (0.0-0.4); Lymphocytes Absolute Auto 1.1 X10*3/uL (1.2-4.9); Lymphocytes Percent Auto 21.1 % (20-40); Mean Corpuscular HGB Conc 30.5 g/dl (31.0-35.0); Mean Corpuscular Hemoglobin 24.3 pg (27.0-33.0); Mean Corpuscular Volume 79.5 fL (80.0-98.0); Mean Platelet Volume 10.2 fL (9.4-12.3); Monocytes Absolute Auto 0.5 X10*3/uL (0.1-1.2); Monocytes Percent Auto 9.9 % (2-11); Neutrophils Absolute Auto 3.4 x10*3/uL (2.0-8.3); Neutrophils Percent Auto 66.8 % (45-73); Platelet Count 280 X10*3/uL (160-400); Red Blood Count 3.91 X10*6/uL (4.20-5.50); White Blood Count 5.1 X10*3/uL (4.8-10.8)
[2025-02-01 09:57] LABS: Estimated Average Glucose 105 mg/dL; Hemoglobin A1c % 5.3 % (<6.0)
[2025-02-01 10:28] LABS: Alanine Aminotransferase 73 U/L (0-31); Albumin Level 4.1 g/dL (3.5-5.0); Alkaline Phosphatase 92 U/L (39-117); Anion Gap 9 (12-20); Aspartate Amino Transferase 109 U/L (5-31); Bilirubin Total 0.3 mg/dL (0.0-1.0); Blood Urea Nitrogen 16 mg/dL (9-16); Calcium 9.1 mg/dL (8.4-10.2); Carbon Dioxide 30 mmol/L (22-29); Chloride 105 mmol/L (96-108); Estimated Glomerular Filt Rate > 60; Glucose Random 83 mg/dL (60-115); Sodium 140 mmol/L (135-145); Total Protein 7.1 g/dL (6.5-8.0)
[2025-02-01 10:39] LABS: Thyroid Stimulating Hormone 18.79 uIU/mL (0.32-4.0)
== END 2025-02-01 09:02 | disposition home or self-care (01) ==
LOC: HO.LAB 09:01
PROVIDERS: Absent Provider Internal Medicine Gastroenterology; PCP Internal Medicine; Visit Provider Internal Medicine
DX: D50.8 Other iron deficiency anemias (principal); E03.9 Hypothyroidism, unspecified; E11.21 Type 2 diabetes mellitus with diabetic nephropathy; R74.01 Elevation of levels of liver transaminase levels
CPT/HCPCS: 36415; 80053; 83036; 84443; 85025

== ENCOUNTER 2025-03-08 10:24 | Outpatient (REF) | payer MEDICAID, SELFPAY ==
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
== END 2025-03-08 10:25 | disposition home or self-care (01) ==
LOC: HO.LNP 10:24
PROVIDERS: Visit Provider Internal Medicine Gastroenterology
DX: A04.8 Other specified bacterial intestinal infections (principal)
CPT/HCPCS: 87338

== ENCOUNTER 2025-05-04 10:03 | Outpatient (REF) | payer MEDICAID, SELFPAY ==
--- OUTSIDE RECORDS SUMMARY | 2024-12-14 07:00 | XMS_ITS ---
Author Organization [facility] Address [address] [facility] [address] [place] [phone] Care Team Providers Care Recovery Coordinator Name Role Phone Iza Smith Primary Care Provider Unavailab Reggie Medina Jr [phone] REASON FOR VISIT fe def anemia Encounters Encounter Location Date Provider Diagnosis [facility] [place] [address] [place] [phone] 12/14/2024 Reggie Perdomo Jr Gastric polyps K31.7 and Iron deficiency anemia D50.9 Assessments Encounter Date Diagnosis (ICD Code) Assessment Notes Treatment Notes Treatment Clinical Notes Section Notes 12/14/2024 Gastric polyps (ICD-10 - K31.7) 12/14/2024 Iron deficiency anemia (ICD-10 - D50.9) Plan Of Treatment Next Appt Details Provider Name:Reggie meyer Jr, 02/27/2026 09:40:00 AM, [address] [place] [address], Suite [facility], [place], [address], Progress Notes * JAVI ARANDAOB:1969 (55 yo F)Acc No.[id number]:12/14/2024 EGD and COL/MAC Patient: KIKA LAI Provider: Jasper Perdomo MD :1970 A ge:54 Y S ex:Female Date:12/14/2024 Address:[address] [place] [address] Pcp:Iza Smith Subjective: * Chief Complaints: * 1 . Fe def anemia. * Medical History: Objective: * Vitals: Assessment: * Assessment: 1. G astric polyps - K31.7 (Primary) 2 . I karla deficiency anemia - D50.9? Plan: * Treatment: * Procedure Codes: 4 5380 COLONOSCOPY AND BIOPSY, 0529F INTRVL 3+YRS PTS CLNSCP DOCD, 604[address] UPPER GI ENDOSCOPY, BIOPSY * * The named appointment provid er may or may not be the originator of this progress note, and it is not deemed complete until electronically signed by the appointment provider. Sign off status: Pending * Provider: Jasper Perdomo MD Date: 0 12/14/2024 Generated for Erik new/Arnoldo/Addisonitting on: 0 05/04/2025 12:12 PM EDT
[2025-05-04 10:27] LABS: MANUAL DIFF FLAG NO
[2025-05-04 11:14] LABS: Hematocrit 32.7 % (37.0-47.0); Hemoglobin 10.0 g/dl (12.0-16.0); Imm Gran Abs Auto 0.02 X10*3/uL (0.00-0.03); Imm Gran Pct Auto 0.4 % (0.0-0.4); Lymphocytes Absolute Auto 0.5 X10*3/uL (1.2-4.9); Mean Corpuscular HGB Conc 30.6 g/dl (31.0-35.0); Mean Corpuscular Hemoglobin 26.1 pg (27.0-33.0); Mean Corpuscular Volume 85.4 fL (80.0-98.0); NRBC Abs Auto 0.000 X10*3/uL (0.0-0.012); NRBC Pct Auto 0.0 /100WBC (0.0-0.2); Platelet Count 201 X10*3/uL (160-400); Red Blood Count 3.83 X10*6/uL (4.20-5.50); White Blood Count 5.0 X10*3/uL (4.8-10.8)
[2025-05-04 12:00] LABS: Alanine Aminotransferase 136 U/L (0-31); Albumin Level 4.0 g/dL (3.5-5.0); Alkaline Phosphatase 86 U/L (39-117); Anion Gap 13 (12-20); Aspartate Amino Transferase 199 U/L (5-31); Blood Urea Nitrogen 12 mg/dL (9-16); Calcium 8.8 mg/dL (8.4-10.2); Carbon Dioxide 31 mmol/L (22-29); Chloride 104 mmol/L (96-108); Cholesterol 131 mg/dL (<200); Estimated Glomerular Filt Rate > 60; HDL Cholesterol 62 mg/dL (>40); Potassium 3.2 mmol/L (3.3-5.1); Sodium 145 mmol/L (135-145); Total Protein 7.1 g/dL (6.5-8.0); Triglycerides 70 mg/dL (<150)
[2025-05-04 12:02] LABS: Alanine Aminotransferase 134 U/L (0-31); Albumin Level 4.0 g/dL (3.5-5.0); Alkaline Phosphatase 86 U/L (39-117); Aspartate Amino Transferase 198 U/L (5-31); Iron 34 mcg/dL (30-160); Percent Iron Saturation 9 % (15-50); Total Iron Binding Capacity 381 mcg/dL (228-428); Total Protein 7.0 g/dL (6.5-8.0); Unsaturated Iron Binding 347 ug/dL
[2025-05-04 12:05] LABS: Hemoglobin A1C 103.6170 umol/L; Total Hemoglobin (HGBA1C) 2675.1063 umol/L
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
[2025-05-04 12:20] LABS: Ferritin 13 ng/mL (10-250); Thyroid Stimulating Hormone 0.49 uIU/mL (0.32-4.0)
[2025-05-04 12:23] LABS: Folate 6.8 ng/mL (> or = 4.0); Vitamin B12 280 pg/mL (200-900)
[2025-05-04 13:05] LABS: Microalbum/Creatinine Ratio Ur 110.6 ug/mg cr (<30)
[2025-05-10 23:48] LABS: FIB-ALT 97 U/L (6-29); FIB-Alpha-2-Macroglobulin 345 mg/dL (106-279); FIB-Apolipoprotein A1 163 mg/dL (101-198); FIB-GGT 39 U/L (3-70); FIB-Haptoglobin 158 mg/dL (43-212); FIB-Total Bilirubin 0.2 mg/dL (0.2-1.2); Liver Fibrosis Score 0.23; Liver Fibrosis Stage F0-F1; Nec Inflam Act Grade A2; Nec Inflam Act Score 0.53
== END 2025-05-04 10:04 | disposition home or self-care (01) ==
LOC: HO.LAB 10:03
PROVIDERS: Absent Provider Internal Medicine; PCP Internal Medicine; Visit Provider Internal Medicine Gastroenterology
DX: Z11.59 Encounter for screening for other viral diseases (principal); E11.21 Type 2 diabetes mellitus with diabetic nephropathy; E03.9 Hypothyroidism, unspecified; E78.00 Pure hypercholesterolemia, unspecified; D50.8 Other iron deficiency anemias; Z95.818 Presence of other cardiac implants and grafts
CPT/HCPCS: 36415; 80053; 80061; 80076; 81596; 82043; 82248; 82570; 82607; 82728; 82746; 83036; 83540; 84443; 85025

== ENCOUNTER → 2025-06-02 13:07 | Outpatient (REF) | payer MEDICAID, SELFPAY ==
--- NOTE | 2025-06-02 13:11 | CA_ITS ---
Transthoracic Echocardiogram Patient (Last, First, Middle): My Colin, Gender: Female Date of : 1970 Age: 55 Procedure Date: 06/02/2025 Procedure Type: Transthoracic Echocardiogram Location: OP Height: 167.64 cm Weight: 65.77 kg BSA: 1.74 m2 Heart Rate: bpm BP: 135 / 85 mmHg Battery Charger Conveyor Line: KESHAWN/GABRIEL Referring MD: Allen Kauffman MD Acquisition Consultant: Allen Kauffman MD Symptoms: I25.5 - Ischemic cardiomyopathy Study Quality: Adequate ECG Rhythm: Sinus Conclusions: - 1. Normal LV ejection fraction 55-60% 2. Normal cardiac valvular Dopplers 3. Normal RV systolic pressure 4. No gross pericardial effusion Findings Left Ventricle Normal left ventricular size, thickness, and systolic function. The visually estimated ejection fraction is between 55-60%. Spectral Doppler is indicative of a normal filling pattern. Right Ventricle Normal right ventricular cavity size and systolic function. Atria Both atria are normal in size. There is no evidence of interatrial shunt. Aortic Valve Normal aortic valve structure and function. There is no aortic valve stenosis. There is no aortic valve regurgitation. Mitral Valve Normal mitral valve structure and function. There is trace mitral valve regurgitation. There is no mitral valve stenosis. Pulmonic Valve The pulmonic valve is likely normal. Tricuspid Valve Normal tricuspid valve structure. There is trace tricuspid valve regurgitation. The right ventricular systolic pressure is normal. The right ventricular systolic pressure is 30 mmHg. Normal right atrial pressure. There is no evidence of pulmonary hypertension. Great Vessels All visible segments of the aorta are normal in size. The pulmonary artery was not well visualized. There is no dilatation of the ascending aorta measuring 3.10 cm. Venous The inferior vena cava is normal in size and collapses greater than 50% with inspiration. Pericardium/Pleural There is no evidence of pericardial effusion. Prior Study Comparison Changes noted compared to prior study dated: 08/20/2023. no regional wall motion abnormalities noted Measurements 2D Linear Measurements IVSd: 0.96 0.6-0.9/0.6-1.0 cm LVIDd: 4.38 3.9-5.3/4.2-5.9 cm LVIDd Index: 2.52 2.4-3.2/2.2-3.1 cm/m2 LVIDs: 2.89 2.0-3.6 cm LVPWd: 0.95 0.7-1.1 cm LA Diam: 3.00 2.7-3.8/3.0-4.0 cm LAIDs Index: 1.72 1.5-2.3 cm/m2 LV Mass: 171.42 67-162/88-224 g LV Mass Index: 98.52 43-95/49-115 g/m2 LVOT Diam: 1.90 3.0+(-)1.3 cm 2D Systolic Function EF 4C: 56.20 >55% EF 2C: 61.10 >55% EF BiP: 58.10 >55% Mitral Valve MV Pk E: 0.87 MV PK A: 0.86 MV Decel Time: 200.00 E/A: 1.00 E'Lateral: 8.38 E'Medial: 5.11 E/E' Med: 17.00 E/E' Lat: 10.40 PHT: 58.00 MVA PHT: 3.79 Decel [place]: 4.36 Aortic Valve AoV Pk Arsen: 1.54 AoV Mn Arsen: 1.05 AoV VTI: 0.31 AoV Pk Grad: 9.00 Aov Mn Grad: 5.00 REKHA Cont.VTI: 2.04 LVOT LVOT Pk Arsen: 1.04 LVOT Mn Arsen: 0.68 LVOT VTI: 0.22 LVOT Pk Grad: 4.00 LVOT Mn Grad: 2.00 LVOT Diam: 1.90 LVOT Area: 2.84 Diastolic Function MV Pk E: 0.87 MV Pk A: 0.86 E/A: 1.00 E'Medial: 5.11 E/E' Med: 17.00 E' Laterial: 8.38 E/E' Lat: 10.40 Right Ventricle TAPSE (mm): 19.00 TVS' Arsen: 11.30 Tricuspid Valve TR Pk Arsen: 2.36 TR Pk Grad: 22.00 RA Press: 8.00 RVSP: 30.00 Great Vessels Aorta Sinus of Valsalva: 3.10 2.0-3.5 cm Ao Asc: 3.10 2.1-3.4 cm Pulmonary Veins Pulm Vein S/D 1.80 Pulmonary Valve PV Pk Arsen: 1.03 Peak PV Grad: 4.00 Updated in Other Vendor System with Status of Final Allen Kauffman MD electronically signed on 06/03/2025 2:12:38 PM with status of Final
== END ==
LOC: HO.CARD 13:07
PROVIDERS: PCP Internal Medicine; Visit Provider Internal Medicine
DX: I25.5 Ischemic cardiomyopathy (principal); I10 Essential (primary) hypertension
CPT/HCPCS: 93306

== ENCOUNTER → 2025-06-02 13:11 | Outpatient (BNV) | payer MEDICAID, SELFPAY | PROVIDERS: PCP Internal Medicine; Visit Provider Internal Medicine Cardiovascular Disease | DX: I25.5 Ischemic cardiomyopathy (principal) | CPT/HCPCS: 93306 ==

== ENCOUNTER 2025-06-07 10:03 | Outpatient (AMB) | payer MEDICAID, SELFPAY ==
--- OUTSIDE RECORDS SUMMARY | 2024-12-14 07:00 | XMS_ITS ---
Author Organization [facility] Address [address] [place] [address] [place] [phone] Care Team Providers Care Field Worker Name Role Phone Iza Smith Primary Care Provider Unavailab Reggie Medina Jr REASON FOR VISIT fe def anemia Encounters Encounter Location Date Provider Diagnosis [facility] [place] [address] [place] [id number] 12/14/2024 Reggie Perdomo Jr Gastric polyps K31.7 and Iron deficiency anemia D50.9 Assessments Encounter Date Diagnosis (ICD Code) Assessment Notes Treatment Notes Treatment Clinical Notes Section Notes 12/14/2024 Gastric polyps (ICD-10 - K31.7) 12/14/2024 Iron deficiency anemia (ICD-10 - D50.9) Plan Of Treatment Next Appt Details Provider Name:Reggie meyer Jr, 02/27/2026 09:40:00 AM, [address] [place] [address], Suite [facility], [place], [address], Progress Notes * JAVI ARANDAOB:1969 (55 yo F)Acc No.[id number]:12/14/2024 EGD and COL/MAC Patient: KIKA LAI Provider: Jasper Perdomo MD :1970 A ge:54 Y S ex:Female Date:12/14/2024 Address:[address] [place] [address] Pcp:Iza Smith Subjective: * Chief Complaints: * 1 . Fe def anemia. * Medical History: Objective: * Vitals: Assessment: * Assessment: 1. G astric polyps - K31.7 (Primary) 2 . I karla deficiency anemia - D50.9? Plan: * Treatment: * Procedure Codes: 4 5380 COLONOSCOPY AND BIOPSY, 0529F INTRVL 3+YRS PTS CLNSCP DOCD, [address] UPPER GI ENDOSCOPY, BIOPSY * * The named appointment provid er may or may not be the originator of this progress note, and it is not deemed complete until electronically signed by the appointment provider. Sign off status: Pending * Provider: Jasper Perdomo MD Date: 0 12/14/2024 Generated for Erik new/Arnoldo/Innasmitting on: 1 11:31 AM EDT
--- NOTE | 2025-06-07 10:16 | MHC.OFFVIS ---
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 Required: No Accompanied by: Self / Same As Patient Allergies No Known Allergies Allergy (Verified 12/14/24 09:52) Medication List - Last Reconciled 06/07/25 by Akhil Thurman MD aspirin 81 mg PO DAILY calcium carbonate-vitamin D3 600 mg-10 mcg (400 unit) 1 tab PO BID ferrous sulfate 325 mg PO Q OTHER DAY levothyroxine 50 mcg PO DAILY@0600 metformin 850 mg PO BID metoprolol succinate ER 25 mg PO DAILY potassium chloride 10 mEq PO DAILY rosuvastatin 40 mg PO BEDTIME sacubitril-valsartan 24-26 mg (Entresto) 1 tab PO BID sertraline 100 mg PO DAILY HPI Comments Details: My returns for follow-up regarding coronary artery disease. Multiple comorbidities including diabetes, hypertension, dyslipidemia. She presented to [facility] in 2022 with chest pain and diagnosed to have STEMI; underwent ENEDELIA to LAD. She also had severe LV dysfunction with an ejection fraction of 25-30% range which has since normalized. Overall, she states she is feeling good. No cardiac complaints. [facility] Medical History Hypothyroidism Diabetes Elevated LFTs Fatty liver CAD (coronary artery disease) Anemia History of blood transfusion Essential hypertension Type 2 diabetes mellitus with unspecified complications Ischemic cardiomyopathy Atherosclerotic cardiovascular disease Surgical History H/O heart artery stent Hx of colonoscopy Hx of cardiac catheterization Family History Mother Stroke Social History Household Members: Other Household Members Other:: mother Housing: Apartment Are you a primary home care manager rn to a significant other at home: No Do you presently have visiting nurse or other home services: No 75 years or older and lives alone: No Alcohol intake: never Patient Tobacco Use Status: Never used Tobacco e-Cigarette/Vaping Use: Never Used service: No Review of Systems Const Denies chills, Denies fatigue, Denies fever(s), Denies frequent falls, Denies weakness, Denies weight gain and Denies weight loss ENT Denies dizziness Card Denies chest pain, Denies leg edema, Denies lightheadedness, Denies palpitations, Denies dyspnea and Denies dyspnea on exertion Resp Denies cough, Denies dyspnea and Denies dyspnea on exertion GI Denies hematochezia Musc Denies abnormal gait, Denies muscle weakness, Denies numbness, Denies radiating pain into limb and Denies tingling Neuro Denies abnormal gait, Denies dizziness, Denies frequent falls, Denies numbness, Denies tingling and Denies weakness Endo Denies fatigue and Denies palpitations Physical Exam Vital Signs: Last Vital Signs Pulse 75 06/07/25 10:17 BP 120/72 06/07/25 10:17 BMI result Body Mass Index 23.1 Const General: comfortable and no acute distress Orientation/consciousness: patient oriented x3 HEENT Other: Unremarkable Head: Yes normal to inspection Neck Neck: Yes normal visual inspection Chest Chest palpation & inspection: normal inspection of the chest Resp Auscultation: clear to auscultation bilaterally Cardio Palpation: normal PMI Heart sounds: S1 normal heart sound present, S2 normal heart sound present, no gallops, no murmurs and no rubs GI Palpation (GI): Soft to palpation Back/Spine/Pelvis Other: unremarkable Skin General skin exam: no rashes or lesions noted Neuro General: patient oriented x3 Extrem General: Yes normal to inspection Psych Mental Status: mental status grossly normal Office Procedures EKG Details: EKG with underlying sinus rhythm at 75/Min; no ischemic changes; normal MO; corrected QT is mildly prolonged at 486 milliseconds. [address]-Rrzdyceiyaznjashk, Complete Assessment & Plan Assessment & Plan (1) Atherosclerotic cardiovascular disease: Code(s): I25.10 - Atherosclerotic heart disease of [place] coronary artery without angina pectoris Category: Medical (2) Stented coronary artery: Code(s): Z95.5 - Presence of coronary angioplasty implant and graft Category: Surgical (3) Ischemic cardiomyopathy: Code(s): I25.5 - Ischemic cardiomyopathy Category: Medical (4) Type 2 diabetes mellitus with unspecified complications: Code(s): E11.8 - Type 2 diabetes mellitus with unspecified complications Category: Medical (5) Essential hypertension: Code(s): I10 - Essential (primary) hypertension Category: Medical (6) Abnormal LFTs: Code(s): R79.89 - Other specified abnormal findings of blood chemistry Category: Medical Plan Cardiac studies reviewed. Initial echocardiogram with LVEF of 25-30%. Mid to distal anteroseptal wall, inferoseptal wall, apex, anterior anterior wall akinetic. In the recent study, LVEF normal 55-60%. No wall motion abnormalities reported. In the cardiac catheterization, severe lesion to the proximal to mid LAD requiring ENEDELIA. Moderate disease in the left circumflex, OM/PDA/PLV, but not intervened. LVEDP was 6. Overall, continue medical therapy for coronary disease and cardiomyopathy. Continue long-term aspirin. Continue metoprolol ER and Entresto. With regard to diabetes, on metformin. Last hemoglobin A1c is 5.7%. For dyslipidemia, listed to be on rosuvastatin. Due to abnormal LFTs, that will need to be stopped. We discussed about that today. Also not clear what workup is being done and hence we will contact Dr. Perdomo from Gastroenterology. She may need an alternative agent like Repatha or Praluent for cholesterol management. Follow up in 6 months time. Discussion Notes I discussed with the patient the need to discontinue Rosuvastatin due to abnormal liver function and the potential option of an injection if necessary. Patient was informed and verbally consented to the use of an ambient scribe for clinic note documentation during this visit. Patient Instructions: - Stop taking rosuvastatin immediately. - Schedule follow up with your station gateman regarding liver. Coding Level of Care Code Est Pt Level 4 (62038) Complex EM visit Add On G2211 Diagnoses Atherosclerotic cardiovascular disease I25.10 Stented coronary artery Z95.5 Ischemic cardiomyopathy I25.5 Type 2 diabetes mellitus with unspecified complications E11.8 Essential hypertension I10 Abnormal LFTs R79.89 CPT Codes EKG - CPT: 51720-Yobgwkrruhnjcgdij, Complete ([id number])
[2025-06-07 10:17] VITALS: BP 120/72; PULSE 75; BMI 23.1
--- OUTSIDE RECORDS SUMMARY | 2025-06-07 11:31 | XMS_ITS | Patient Health Record ---
Author Organization [facility] Address [address] [place] [address] Care Team Providers Care Space Scheduler Name Role Phone Iza Smith Primary Care Provider Reggie Murphy Jr Unavailable [phone] Allergies No Known Allergies Results Component Value Reference Range Notes Liver Fibrosis Pnl Reviewed date:12/13/2024 10:23:29 AM Interpretation: Performing Lab:[facility], [address] [place] [phone] Notes/Report: Liver Fibrosis Score 0.20 Liver Fibrosis [...] a>0.62 and a<=1.00 : A3 (severe activity) RMB-Xatmv-2-Macroglobulin 327 106-279 mg/dL FIB-Haptoglobin 154 43-212 mg/dL FIB-Apolipoprotein A1 169 101-198 mg/dL FIB-Total Bilirubin 0.2 0.2-1.2 mg/dL FIB-GGT 35 3-70 U/L FIB-ALT 37 6-29 U/L Reference ID [id number] Footnote SEE NOTE The reliability of results is dependent on compliance with the preanalytical and analytical conditions recommended by [employer]. The tests have to be deferred [...] The performance characteristics have been determined by [facility]. It has not been cleared or approved by the U.S. Food and Drug Administration. Performance characteristics refer to the analytical performance of the test. [employer], the associated logo, WinProbe and all associated [employer] turk are the registered trademarks of [employer]. All third alliance party turk - (R) and (TM) - are the property of their respective owners. (C) 5827-4663 [employer]. All rights reserved. THIS TEST WAS PERFORMED AT: [facility] [place] [address] [facility] [address] SHILPI MONGE MD,PHD,JUAN MURPHY Reflex Titer and Pattern Reviewed date:12/13/2024 10:23:40 AM Interpretation: Performing Lab:[facility], [address] [place] [phone] Notes/Report: Anti Nuclear Antibody Screen NEGATIVE NEGATIVE [...] Negative International Consensus on MURPHY Patterns (https://doi.org/10.1515/ccl m-7767-7016) For additional information, please refer to http://education.Quemulus.Qqbaobao.com/faq/JAU804 (This link is being provided for informational/ educational purposes only.) THIS TEST WAS PERFORMED AT: [facility] [address] [place] [phone] AMANDA JACKSON MD Anti Nuclear Antibody Titer TNP Anti Nuclear Antibody Pattern TNP MURPHY Titer 2 TNP MURPHY Pattern 2 TNP MURPHY Titer 3 TNP MURPHY Pattern 3 TNP Complete Blood Count no Diff Reviewed date:12/09/2024 07:14:03 AM Interpretation: Performing Lab:[facility], [address] [place] [phone] Notes/Report: White Blood Count 6.2 4.8-10.8 X10*3/uL [...] CBC Reviewed date:12/09/2024 07:13:52 AM Interpretation: Performing Lab:[facility], [address] [place] [phone] Notes/Report: Pathologist Review - CBC SEE NOTE Hypochromic microcytic anemia; scattered elliptocytes, ovalocytes and occasional targets are present. Please correlate with iron studies. - Francisco Shelton M.D. Pathology Liver Panel Reviewed date:12/09/2024 07:14:43 AM Interpretation: Performing Lab:[facility], [address] [place] [phone] Notes/Report: Bilirubin Total 0.3 0.0-1.0 mg/dL Bilirubin Direct 0.1 0.0-0.5 mg/dL Aspartate Amino Transferase 80 5-31 U/L Alanine Aminotransferase 52 0-31 U/L Total Protein 7.0 6.5-8.0 g/dL Albumin Level 3.8 3.5-5.0 g/dL Alkaline Phosphatase 98 39-117 U/L IRON PROFILE Reviewed date:12/07/2024 04:40:14 PM Interpretation: Performing Lab:[facility], [address] [place] [phone] Notes/Report: Iron 11 30-160 mcg/dL Total Iron Binding Capacity 420 228-428 mcg/dL Percent Iron Saturation 3 15-50 % Unsaturated Iron Binding 409 Lipase Reviewed date:12/09/2024 07:14:13 AM Interpretation: Performing Lab:[facility], [address] [place] [phone] Notes/Report: Lipase 34 8-78 U/L Mitochondrial Antibody Reviewed date:12/15/2024 08:34:04 AM Interpretation: Performing Lab:[address] [address] Notes/Report: Mitochondrial Antibodies NEGATIVE NEGATIVE The immunofluorescence assay (IFA) procedure reveals the possible presence of another autoantibody. Consider requesting order code 263, Smooth Muscle Antibody with Reflex to Titer, if clinically indicated. THIS TEST WAS PERFORMED AT: [facility] [address] [address] AMANDA JACKSON MD Mitochondrial Ab Titer TNP Smooth Muscle Antibody Reviewed date:12/15/2024 08:33:58 AM Interpretation: Performing Lab:[address] [address] Notes/Report: Smooth Muscle Antibody 28 <20 U [...] type 1. THIS TEST WAS PERFORMED AT: [facility]/[address] [address] LAYA NAVARRO MD,PHD Hepatitis A,B,C Profile Reviewed date:12/09/2024 07:15:32 AM Interpretation: Performing Lab:[address] [address] Notes/Report: Hepatitis A Antibody IgM Nonreactive Nonreactive [...] Blood Reviewed date:12/14/2024 02:44:20 PM Interpretation: Performing Lab:[address] [phone] Notes/Report: Glucose, Whole Blood 77 60-115 mg/dL METER # : [id number] Pathology Reviewed date:12/20/2024 08:57:28 AM Interpretation: Performing Lab:[address] [phone] Notes/Report: H pylori Ag Stool Reviewed date:03/09/2025 04:00:27 PM Interpretation: Performing Lab:[address] [address] Notes/Report: H pylori Ag Stool SEE NOTE [employer], EIA, STOOL Micro Number: [id number] Test Status: Final Specimen Source: Stool Specimen [...] Not Detected THIS TEST WAS PERFORMED AT: [facility] [address] [place] [address] AMANDA JACKSON MD Liver Panel Reviewed date:05/04/2025 02:17:21 PM Interpretation: Performing Lab:[address] [address] Notes/Report: Bilirubin Total 0.2 0.0-1.0 mg/dL Bilirubin Direct < 0.2 0.0-0.5 mg/dL Aspartate Amino Transferase 198 5-31 U/L Alanine Aminotransferase 134 0-31 U/L Total Protein 7.0 6.5-8.0 g/dL Albumin Level 4.0 3.5-5.0 g/dL Alkaline Phosphatase 86 39-117 U/L IRON PROFILE Reviewed date:05/04/2025 02:17:14 PM Interpretation: Performing Lab:[address] [address] Notes/Report: Iron 34 30-160 mcg/dL Total Iron Binding Capacity 381 228-428 mcg/dL Percent Iron Saturation 9 15-50 % Unsaturated Iron Binding 347 Liver Fibrosis Pnl Reviewed date:05/17/2025 03:37:52 PM Interpretation: Performing Lab:[address] [address] Notes/Report: Liver Fibrosis Score 0.23 Liver Fibrosis Stage F0-F1 Liver Fibrosis Interpretation SEE NOTE no fibrosis [...] F4 (severe fibrosis) Nec Inflam Act Score 0.53 Nec Inflam Act Grade A2 Nec Inflam Act Interpretation SEE NOTE significant activity ActiTest Score (a) Metavir Score a>=0 and a<=0.17 : A0 (no activity) a>0.17 and a<=0.29 : A0-A1 (no activity) a>0.29 and a<=0.36 : A1 (minimal activity) a>0.36 and a<=0.52 : A1-A2 (minimal activity) a>0.52 and a<=0.60 : A2 (significant activity) a>0.60 and a<=0.62 : A2-A3 (significant activity) a>0.62 and a<=1.00 : A3 (severe activity) PHG-Ozpud-1-Macroglobulin 345 106-279 mg/dL FIB-Haptoglobin 158 43-212 mg/dL FIB-Apolipoprotein A1 163 101-198 mg/dL FIB-Total Bilirubin 0.2 0.2-1.2 mg/dL FIB-GGT 39 3-70 U/L FIB-ALT 97 6-29 U/L Reference ID [id number] Footnote SEE NOTE The reliability of results is dependent on compliance with the preanalytical and analytical conditions recommended by [employer]. The tests have to be deferred [...] The performance characteristics have been determined by [employer] [facility]. It has not been cleared or approved by the U.S. Food and Drug Administration. Performance characteristics refer to the analytical performance of the test. [employer], the associated logo, WinProbe and all associated [employer] turk are the registered trademarks of [employer]. All third alliance party turk - (R) and (TM) - are the property of their respective owners. (C) 0009-2677 [employer]. All rights reserved. THIS TEST WAS PERFORMED AT: [facility] [place] [address] [place] [address] SHILPI MONGE MD,PHD,JUAN Reason For Referral Referring Provider First Name Iza Referring Provider Last Name Sarah Referring Provider Speciality Internal M edicine Referred Organization [facility] Referred Provider Reggie Perdomo Jr Referred Address [address] [place] [id number], Referred Provider Specialty Gastroentero logloretta General Notes Terese Womack 2024 02:27:02 PM requested a [facility] referral from Dr. Smith's office for visit with Dr. Perdomo on 12-02-2024 Referral Priority Routine Medications Medication SIG (Take, Route, Frequency, Duration) Notes Start Date End Date Status Omeprazole 20 MG 1 Orally Twice daily ; Duration: 14 days 12/20/2024 Active Sertraline HCl 100 MG TAKE 1 TABLET BY M OUTH EVERY DAY Oral; Duration: 90 Days Active Entresto 24-26 MG TAKE 1 TABLET BY MANISHA TH TWICE A DAY Oral; Duration: 30 Days Active Calcium + Vitamin D3 600-10 MG-MCG TAKE 1 TABLET BY MOUTH TWICE A DAY Oral; Duration: 90 Days Active Rosuvastatin Calcium 40 MG TAKE 1 TABLET BY MOUTH EVERYDAY AT BEDTIME Oral; Duration: 90 Days Active Aspirin Low Dose 81 MG TAKE 1 TABLET BY MOUTH EVERY DAY Oral; Duration: 90 Days Active Metoprolol Succinate ER 25 MG TAKE 1 TABLET BY MOUTH EVERY DAY Oral; Duration: 90 Days Active metFORMIN HCl 850 MG TAKE 1 TABLET BY [facility] TWICE A DAY Oral; Duration: 90 Days Active Bismuth Subsalicylate 525 MG 1 Orally 4 times daily; Duration: 14 days 12/20/2024 Active Tetracycline HCl 500 MG 1 Orally 4 times daily; Duration: 14 days 12/20/2024 Active Levothyroxine Sodium 88 MCG 1 tablet Ora lly Once a day Active metroNIDAZOLE 500 MG [address] ee times a day; Duration: 14 days 12/20/2024 Active Calcium 600 + D 600-200 MG-UNIT Orally Active Immunizations Vaccine Route Administration Date Status Comme nts Influenza Unknown 04/07/2024 Administered Problems Problem Type SNOMED Code ICD Code Onset Dates Problem Status W/U Status Risk Notes Problem Iron deficiency anemia (54947426) Other iron deficiency anemia (D50.8) Active confirmed Problem Iron deficiency anemia (96589838) Iron deficiency anemia, unspecified iron deficiency anemia type (D50.9) Active confirmed Vital Signs Temperature 99.1 degrees Fahrenheit 03/17/2025 Blood pressure diastolic 01 mm Hg 03/17/2025 Height 64 in 03/17/2025 Blood pressure systolic 001 mm Hg 03/17/2025 Weight 148.8 lbs 03/17/2025 BMI 25.54 kg/m2 03/17/2025 Encounters Encounter Location Date Provider Diagnosis [facility] [address] [place] [phone] 12/14/2024 Reggie Perdomo Jr Gastric polyps K31.7 and Iron deficiency anemia D50.9 [facility] [address] [place] [address] 12/02/2024 Reggie Perdomo Jr Iron deficiency anemia, unspecified iron deficiency anemia type D50.9 and Elevated LFTs R79.89 [facility] [address] [place] [phone] 03/17/2025 Reggie Perdomo Jr Other iron deficiency anemia D50.8 and Elevated LFTs R94.5 [facility] [address] [place] [phone] 12/06/2024 Reggie Perdomo Jr [facility] [address] [place], [place] [address], [place] [address] 12/07/2024 Reggie Perdomo Jr [facility] [address] [facility] [place] [address] 12/08/2024 Reggie Perdomo Jr [facility] [address] [place], [place] [address], [place] [address] 12/08/2024 Reggie Perdomo Jr [facility] [address] [place], [place] [address], [place] [address] 12/08/2024 Reggie Perdomo Jr [facility] [address] [place] [address], [place] [address] 12/20/2024 Reggie Perdomo Jr H. pylori infection A04.8 [facility] [address] [facility] [place] [address] 03/09/2025 Reggie Perdomo Jr [facility] [address] [place] [address], [place] [address] 03/10/2025 Reggiemaribeth Perdomo Jr [facility] [address] [place] [address], [place] [address] 05/17/2025 Reggie Perdomo Jr Elevated LFTs R79.89 Assessments Encounter Date Diagnosis [...] 12/20/2024 H. pylori infection (ICD-10 - A04.8) 05/17/2025 Elevated LFTs (ICD-10 - R79.89) Plan Of Treatment Pending Test Test Name Order Date LIVER PROFILE 05/17/2025 LIVER PROFILE 12/02/2024 LIVER PROFILE 03/17/2025 LIPASE 12/02/2024 IRON + IBC (FE) 03/17/2025 IRON + IBC (FE) 12/02/2024 FERRITIN 03/17/2025 CBC w/o DIFF 03/17/2025 CBC w/o DIFF 12/02/2024 HEPATITIS A,B,C PROFILE 12/02/2024 MITOCHONDRIAL AB 12/02/2024 SMOOTH MUSCLE ANTIBODIES 12/02/2024 Liver Fibrosis Pnl 03/17/2025 H pylori Ag Stool 12/20/2024 Future Test Test Name Order Date COLONOSCOPY 10/06/2015 UPPER GI ENDOSCOPY 12/02/2024 COLONOSCOPY 12/02/2024 Next Appt Details Provider Name:Reggie Vieyra Gageflorentino leemaldonado Dubon, 02/27/2026 09:40:00 AM, [address], [address], [place], [address], Insurance Providers Payer Name Payer Address Payer Phone Subscriber Number Group Number Insured Name Patient Relationship to Insured Coverage Start Date Coverage End Date [facility]ICA[facility] [address] [place] [phone] [id number] KIKA FREITAS Self - patient is the [...]
== END 2025-06-07 10:32 | disposition home or self-care (01) ==
LOC: HO.HCS 10:04
PROVIDERS: PCP Internal Medicine; Visit Provider Internal Medicine
DX: I25.10 Atherosclerotic heart disease of native coronary artery without angina pectoris (principal); Z95.5 Presence of coronary angioplasty implant and graft; I25.5 Ischemic cardiomyopathy; E11.8 Type 2 diabetes mellitus with unspecified complications; I10 Essential (primary) hypertension; R79.89 Other specified abnormal findings of blood chemistry
CPT/HCPCS: 93010; 99214

== ENCOUNTER → 2025-06-07 10:03 | Outpatient (BNVA) | payer MEDICAID, SELFPAY | PROVIDERS: PCP Internal Medicine; Visit Provider Internal Medicine | DX: I25.10 Atherosclerotic heart disease of native coronary artery without angina pectoris (principal); E11.8 Type 2 diabetes mellitus with unspecified complications; I10 Essential (primary) hypertension; I25.5 Ischemic cardiomyopathy; R79.89 Other specified abnormal findings of blood chemistry; Z95.5 Presence of coronary angioplasty implant and graft | CPT/HCPCS: 93005; 99212 ==

== ENCOUNTER 2025-06-29 09:32 | Outpatient (REF) | payer MEDICAID, SELFPAY ==
--- OUTSIDE RECORDS SUMMARY | 2024-12-14 06:00 | XMS_ITS ---
Author Organization [facility] Address [address] [place] [address] [place] [phone] Care Team Providers Care Flush Tester Name Role Phone Iza Smith Primary Care Provider Unavailab Reggie Medina Jr Unavailable REASON FOR VISIT fe def anemia Encounters Encounter Location Date Provider Diagnosis [facility] [place] [facility] [address] [place] [phone] 12/14/2024 Reggie Perdomo Jr Gastric polyps K31.7 and Iron deficiency anemia D50.9 Assessments Encounter Date Diagnosis (ICD Code) Assessment Notes Treatment Notes Treatment Clinical Notes Section Notes 12/14/2024 Gastric polyps (ICD-10 - K31.7) 12/14/2024 Iron deficiency anemia (ICD-10 - D50.9) Plan Of Treatment Next Appt Details Provider Name:Reggie meyer Jr, 12/07/2025 09:20:00 AM, [address] [place] [address], Suite [facility], [place], [address], Progress Notes * JAVI ARANDAOB:1969 (55 yo F)Acc No.[id number]:12/14/2024 EGD and COL/MAC Patient: KIKA LAI Provider: Jasper Perdomo MD :1970 A ge:54 Y S ex:Female Date:12/14/2024 Address:[address] [place] [address] Pcp:Iza Smith Subjective: * Chief Complaints: * 1 . Fe def anemia. * Medical History: Objective: * Vitals: Assessment: * Assessment: 1. G astric polyps - K31.7 (Primary) 2 . I karla deficiency anemia - D50.9? Plan: * Treatment: * Procedure Codes: 4 5380 COLONOSCOPY AND BIOPSY, 0529F INTRVL 3+YRS PTS CLNSCP DOCD, [address]72 UPPER GI ENDOSCOPY, BIOPSY * * The named appointment provid er may or may not be the originator of this progress note, and it is not deemed complete until electronically signed by the appointment provider. Sign off status: Pending * Provider: Jasper Perdomo MD Date: 0 12/14/2024 Generated for Erik new/Arnoldo/Innasmitting on: 1 08/29/2024 10:40 AM EST
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
== END 2025-06-29 09:33 | disposition home or self-care (01) ==
LOC: HO.MAMMO 09:32
PROVIDERS: PCP Internal Medicine; Visit Provider Internal Medicine
DX: Z12.31 Encounter for screening mammogram for malignant neoplasm of breast (principal)
CPT/HCPCS: 77063; 77067

== ENCOUNTER → 2025-06-29 09:45 | Outpatient (BNV) | payer MEDICAID, SELFPAY | PROVIDERS: PCP Internal Medicine; Visit Provider Radiology Body Imaging | DX: Z12.31 Encounter for screening mammogram for malignant neoplasm of breast (principal) | CPT/HCPCS: 77063; 77067 ==

== ENCOUNTER 2025-07-19 09:15 | Outpatient (REF) | payer MEDICAID, SELFPAY ==
[2025-07-19 10:55] LABS: Alanine Aminotransferase 22 U/L (0-31); Albumin Level 4.0 g/dL (3.5-5.0); Alkaline Phosphatase 90 U/L (39-117); Aspartate Amino Transferase 41 U/L (5-31); Total Protein 7.6 g/dL (6.5-8.0)
== END 2025-07-19 09:16 | disposition home or self-care (01) ==
LOC: HO.LAB 09:15
PROVIDERS: PCP Internal Medicine; Visit Provider Internal Medicine Gastroenterology
DX: R79.89 Other specified abnormal findings of blood chemistry (principal)
CPT/HCPCS: 36415; 80076